=== PATIENT | female | born 1955 | race African-American/Black ===

== ENCOUNTER 2019-12-16 19:28 | Inpatient (IN) | payer BC, OTHER ==
[2019-12-16 19:44] VITALS: BMI 34.7
--- NOTE | 2019-12-16 19:44 | PDOC ---
Rapid Medical Evaluation Chief Complaint: Edema Time Seen by Provider: 12/16/19 19:38 Medical Evaluation: Allergies Allergy/AdvReac Type Severity Reaction Status Date / Time No Known Drug Allergies Allergy Verified 10/09/14 08:56 12/16/19 19:39 64 year old with erythema and swelling to b/l lower extremity right worse than leg. [patient was seen by pcp and was started on a diuretic and medrol dose pack. patient reports increased pain and swelling. denies chest pain, shortness of breath, fever/ chills PE; patient alert ox3. weeping wound to right calf. + b/l pedal edema PMHX: afib on xarelto A: pedal edema P: labs US 12/16/19 19:43 Discharge Disposition - Diagnosis Edema Qualifiers: Edema type: unspecified Qualified Code(s): R60.9 - Edema, unspecified - Referrals - Patient Instructions - Post Discharge Activity
--- NOTE | 2019-12-16 20:24 | PDOC ---
History of Present Illness - General Chief Complaint: Edema Stated Complaint: BILATERALLEG PAIN/SWELLING/ Time Seen by Provider: 12/16/19 19:38 History Source: Patient Exam Limitations: No Limitations - History of Present Illness Initial Comments: 12/16/19 20:23 HPI: This is a 64 y/o female with a PMH of HTN and afib on xarelto presenting to the ED due to 5 days of bilateral lower extremity edema, redness, itching and leaking fluid. Additionally she states she has a rash on her upper arms, and has bilateral hand swelling. She denies any previous leg edema, but states her feet are normally swollen. She denies any accompanying chest pain, headache, d izziness, blurry vision, SOB, N/V, or sweating. On she went to her commercial horticulture instructor who sent her to her PCP who prescribed Lasix. She went to urgent care who prescribed prednisone and benadryl. The swelling and itching wasn't getting better and so she came in. PCP:Prateek Baird ROS: GENERAL/CONSTITUTIONAL: No fever/chills. No weakness. HEAD, EYES, EARS, NOSE AND THROAT: No change in vision. No blurry vision. CARDIOVASCULAR: No chest pain or shortness of breath. RESPIRATORY: No cough, wheezing, or hemoptysis. GASTROINTESTINAL: No nausea, vomiting, diarrhea or constipation. GENITOURINARY: No dysuria, frequency, or change in urination. MUSCULOSKELETAL: No joint or muscle swelling or pain. No neck or back pain. SKIN: Yes rash on upper and lower bilateral extremities. NEUROLOGIC: No headache, vertigo, or change in strength/sensation. HEMATOLOGIC/LYMPHATIC: No anemia, easy bleeding, or history of blood clots. ALLERGIC/IMMUNOLOGIC: No hives or skin allergy. PMH: Afib on xarelto, HTN PSx: Appendix, Hysterectomy Social Hx: Denied etoh and tobacco Meds: Prednisone, xarelto, metoprolol, spironolactone, valsartan, HCTZ Allergies: Denied PE: GENERAL: Awake, alert, and fully oriented, in no acute distress. Patient laying in hospital bed, conversing normally. HEAD: No signs of trauma EYES: PERRLA, EOMI, sclera anicteric, conjunctiva clear NECK: Normal ROM, supple, no lymphadenopathy, JVD, or masses LUNGS: Breath sounds equal, clear to auscultation bilaterally. No wheezes, and no crackles HEART: Irregular rhythm, normal rate, normal S1 and S2, no murmurs, rubs or gallops ABDOMEN: Soft, nontender, normoactive bowel sounds. No guarding, no rebound. No masses EXTREMITIES: Normal range of motion, bilateral lower extremity pitting edema R>L. Skin thickening on bilateral calves. Both calves are erythemetous and warm to the touch. Bilateral excoriations. NEUROLOGICAL: Cranial nerves II through XII grossly intact. Normal speech, normal gait MDM: 12/16/19 21:20 This is a 64 y/o female with a PMH of HTN and afib on xarelto presenting to the ED due to 5 days of bilateral lower extremity edema, redness, itching and leaking fluid. ddx: r/o CHF vs stasis dermatitis vs DVT vs hypertensive crisis vs kidney failure vs liver ds - EKG - CXR - CBC - CMP - Troponin - BNP 12/16/19 21:30 CXR without pulmonary edema, pneumothorax No evidence of DVT in either lower extremity 12/16/19 21:33 CBC WBC 12.1 K/mm3 (4.0-10.0) H 12/16/19 22:00 RBC 4.82 M/mm3 (3.60-5.2) 12/16/19 22:00 Hgb 14.4 GM/dL (10.7-15.3) 12/16/19 22:00 Hct 44.3 % (32.4-45.2) D 12/16/19 22:00 MCV 92.0 fl (80-96) 12/16/19 22:00 MCH 29.9 pg (25.7-33.7) D 12/16/19 22:00 MCHC 32.5 g/dl (32.0-36.0) 12/16/19 22:00 RDW 14.4 % (11.6-15.6) D 12/16/19 22:00 Plt Count 280 K/MM3 (134-434) 12/16/19 22:00 MPV 7.7 fl (7.5-11.1) 12/16/19 22:00 Absolute Neuts (auto) 8.7 K/mm3 (1.5-8.0) H 12/16/19 22:00 Neutrophils % 71.5 % (42.8-82.8) 12/16/19 22:00 Lymphocytes % 16.1 % (8-40) 12/16/19 22:00 Monocytes % 6.3 % (3.8-10.2) 12/16/19 22:00 Eosinophils % 5.5 % (0-4.5) H 12/16/19 22:00 Basophils % 0.6 % (0-2.0) 12/16/19 22:00 Nucleated RBC % 0 % (0-0) 12/16/19 22:00 Leukocytosis likely due to steroids, no anemia CMP Sodium 140 mmol/L (136-145) 12/16/19 22:00 Potassium 4.0 mmol/L (3.5-5.1) 12/16/19 22:00 Chloride 104 mmol/L (98-107) 12/16/19 22:00 Carbon Dioxide 31 mmol/L (21-32) 12/16/19 22:00 Anion Gap 6 MMOL/L (8-16) L 12/16/19 22:00 BUN 15.0 mg/dL (7-18) 12/16/19 22:00 Creatinine 1.0 mg/dL (0.55-1.3) 12/16/19 22:00 Est GFR (CKD-EPI)AfAm 68.95 12/16/19 22:00 Est GFR (CKD-EPI)NonAf 59.49 12/16/19 22:00 Random Glucose 97 mg/dL (74-106) 12/16/19 22:00 Calcium 8.9 mg/dL (8.5-10.1) 12/16/19 22:00 Magnesium 2.0 mg/dL (1.8-2.4) 12/16/19 22:00 Total Bilirubin 0.6 mg/dL (0.2-1) 12/16/19 22:00 AST 22 U/L (15-37) 12/16/19 22:00 ALT 31 U/L (13-61) 12/16/19 22:00 Alkaline Phosphatase 119 U/L (45-117) H 12/16/19 22:00 Troponin I < 0.02 ng/ml (0.00-0.05) 08/03/20 22:00 B-Natriuretic Peptide 512.3 pg/ml (5-125) H 12/16/19 22:00 Total Protein 7.3 g/dl (6.4-8.2) 12/16/19 22:00 Albumin 3.8 g/dl (3.4-5.0) 12/16/19 22:00 TSH 0.56 uIU/ml (0.358-3.74) 12/16/19 22:00 Troponin negative, BNP elevated at 512, 12/16/19 23:37 Urine Test Results Urine Color Yellow 12/16/19 23:16 Urine Appearance Clear 12/16/19 23:16 Urine pH 7.5 (5.0-8.0) 12/16/19 23:16 Ur Specific [place] 1.009 (1.010-1.035) L 12/16/19 23:16 Urine Protein Negative (NEGATIVE) 12/16/19 23:16 Urine Glucose (UA) Negative (NEGATIVE) 12/16/19 23:16 Urine Ketones Negative (NEGATIVE) 12/16/19 23:16 Urine Blood Negative (NEGATIVE) 12/16/19 23:16 Urine Nitrite Negative (NEGATIVE) 12/16/19 23:16 Urine Bilirubin Negative (NEGATIVE) 12/16/19 23:16 Ur Leukocyte Esterase Negative (NEGATIVE) 12/16/19 23:16 Urine negative - Patient will be admitted for workup of possible new onset R. heart failure after failing outpatient diuretics. 12/16/19 23:51 - Microblogged symphony 12/17/19 00:35 - PAtient admitted Past History - Medical History Allergies/Adverse Reactions: Allergies Allergy/AdvReac Type Severity Reaction Status Date / Time No Known Drug Allergies Allergy Verified 10/09/14 08:56 Home Medications: Ambulatory Orders Amlodipine Besylate [Norvasc -] 10 mg PO DAILY 10/19/14 Metoprolol Tartrate [Lopressor -] 25 mg PO BID 10/19/14 Furosemide [Lasix] 20 mg PO DAILY 12/16/19 Rivaroxaban [Xarelto] 20 mg PO DAILY 12/16/19 Spironolactone 25 mg PO BID 12/16/19 Valsartan/Hydrochlorothiazide [Valsartan-Hctz 160-25 mg Tab] 1 each PO DAILY 12/16/19 Anemia: No Asthma: No Cancer: No Cardiac Disorders: Yes (AFIB) CVA: No COPD: No CHF: No Dementia: No Diabetes: No GI Disorders: No Disorders: No HTN: Yes Hypercholesterolemia: No Liver Disease: No Seizures: No Thyroid Disease: No - Surgical History Abdominal Surgery: Yes (GASTRIC BYPASS-1999) Appendectomy: Yes (MANY YEARS AGO) Cardiac Surgery: No Cholecystectomy: No Lung Surgery: No Neurologic Surgery: No Orthopedic Surgery: No - Psycho-Social/Smoking History Smoking History: Never smoked Have you smoked in the past 12 months: No - Substance Abuse Hx (Audit-C & DAST Scrn) How often the patient has a drink containing alcohol: Never Score: In Men: 4 or > Positive; In Women: 3 or > Positive: 0 Screen Result (Pos requires Nsg. Audit-10AR): Negative *Physical Exam - Vital Signs Last Vital Signs Temp Pulse Resp BP Pulse Ox 98.4 F 93 H 20 160/102 H 100 12/16/19 19:39 12/16/19 19:39 12/16/19 19:39 12/16/19 19:39 12/16/19 19:39 Heart Score/ECG Review - ECG Intrepretation Comment:: 12/16/19 22:36 Atrial fibrillation, anteroseptal infarct, age undetermined. Vent rate 73bpm, QRS duration 78ms, QT/QTc 364/401ms. No previous EKG for comparison. 12/16/19 23:37 ED Treatment Course - LABORATORY CBC & Chemistry Diagram: 12/16/19 22:00 12/16/19 22:00 Discharge - Discharge Information Problems reviewed: Yes Clinical Impression/Diagnosis: Edema Qualifiers: Edema type: unspecified Qualified Code(s): R60.9 - Edema, unspecified Congestive heart failure Qualifiers: Heart failure type: unspecified Heart failure chronicity: unspecified Qualified Code(s): I50.9 - Heart failure, unspecified Cellulitis Qualifiers: Site of cellulitis: extremity Site of cellulitis of extremity: lower extremity Laterality: unspecified laterality Qualified Code(s): L03.119 - Cellulitis of unspecified part of limb - Admission Yes - Follow up/Referral - Patient Discharge Instructions - Post Discharge Activity
--- NOTE | 2019-12-16 20:26 | PDOC ---
Attending Attestation - Resident Resident Name: Wendy Lewis - ED Attending Attestation I have performed the following: I have examined & evaluated the patient, The case was reviewed & discussed with the resident, I agree w/resident's findings & plan - HPI HPI: 12/16/19 22:08 see resident hpi - Physicial Exam PE: 12/16/19 22:08 see resident exam - Medical Decision Making 12/16/19 23:27 64-year-old female with worsening extremity edema despite increasing outpatient diuretics Patient is currently anticoagulated for atrial fibrillation Lower extremity duplex shows no DVT In light of worsening condition will admit patient to medical service for further management We will discuss initiation of antibiotics in light of elevated white blood cell count and increased discomfort Discharge - Discharge Information Problems reviewed: Yes Clinical Impression/Diagnosis: Congestive heart failure, Cellulitis Edema Qualifiers: Edema type: unspecified Qualified Code(s): R60.9 - Edema, unspecified - Follow up/Referral Referrals: Helga Chandra MD [Primary Care Provider] - - Patient Discharge Instructions - Post Discharge Activity
[2019-12-16 22:37] LABS: BASO % 0.6 % (0-2.0); EOS % 5.5 % (0-4.5); HEMATOCRIT 44.3 % (32.4-45.2); HEMOGLOBIN 14.4 GM/dL (10.7-15.3); LYMPH % 16.1 % (8-40); MCH 29.9 pg (25.7-33.7); MCHC 32.5 g/dl (32.0-36.0); MEAN PLT VOLUME 7.7 fl (7.5-11.1); MONO % 6.3 % (3.8-10.2); NEUT % 71.5 % (42.8-82.8); PLATELET COUNT 280 K/MM3 (134-434); RBC 4.82 M/mm3 (3.60-5.2); RDW 14.4 % (11.6-15.6); WHITE BLOOD COUNT 12.1 K/mm3 (4.0-10.0)
[2019-12-16 22:50] LABS: INR 1.39 (0.83-1.09); PROTHROMBIN TIME (PATIENT) 16.4 SEC (9.7-13.0)
[2019-12-16 23:13] LABS: ALBUMIN 3.8 g/dl (3.4-5.0); ALK PHOS 119 U/L (45-117); ANION GAP 6 MMOL/L (8-16); BILIRUBIN,TOTAL 0.6 mg/dL (0.2-1); CALCIUM 8.9 mg/dL (8.5-10.1); CHLORIDE 104 mmol/L (98-107); CO2 31 mmol/L (21-32); GLUCOSE,RANDOM 97 mg/dL (74-106); N-TERMINAL BNP 512.3 pg/ml (5-125); SGOT/AST 22 U/L (15-37); SGPT/ALT 31 U/L (13-61); SODIUM 140 mmol/L (136-145); TOT PROT 7.3 g/dl (6.4-8.2)
[2019-12-16 23:25] LABS: PH,URINE 7.5 (5.0-8.0); URINE APPEARANCE CLEAR; URINE BILIRUBIN NEGATIVE (NEGATIVE); URINE COLOR YELLOW; URINE GLUCOSE (UA) NEGATIVE (NEGATIVE); URINE KETONE NEGATIVE (NEGATIVE); URINE LEUK ESTERASE NEGATIVE (NEGATIVE); URINE NITRITE NEGATIVE (NEGATIVE); URINE PROTEIN NEGATIVE (NEGATIVE)
[2019-12-16] MEDS ORDERED: FUROSEMIDE 40 MG/4 ML INJECTABLE VIAL IVPUSH ONE (23:57)
[2019-12-17] MEDS ORDERED: FUROSEMIDE 40 MG/4 ML INJECTABLE VIAL ONE (00:03)
--- NOTE | 2019-12-17 00:52 | PN ---
Teaching Attending Note Name of Resident: Tunde Cortez ATTENDING PHYSICIAN STATEMENT I saw and evaluated the patient. I reviewed the resident's note and discussed the case with the resident. I agree with the resident's findings and plan as documented. SUBJECTIVE: Patient is a 64 year old woman with a PMH of HTN, Thyroid nodule, Prescribed CPAP (not using it because she works nights), Gastric banding and Afib (on Xarelto) presenting to the ER due to 5 days of bilateral lower extremity edema, redness, itching and leaking fluid. Additionally she states she has a rash on her upper arms, and has bilateral hand swelling. She denies any previous leg edema, but states her feet are normally swollen. Sleeps on three pillows. She denies any accompanying chest pain, headache, dizziness, blurry vision, SOB, nausea, vomiting or sweating. On she went to her customer service sales consultant who sent her to her PCP who prescribed Lasix. She went to Urgent care who prescribed Prednisone and Benadryl. The swelling and itching wasn't getting better and so she came in. Patient denies fever, chills, diarrhea, constipation, dysuria, frequency, urgency, melena, hematochezia or hematuria. Denies alcohol, tobacco or illicit drug use. No sick contacts or recent travels. Has family history of hypertension. OBJECTIVE: Alert Vital Signs Period Temp Pulse Resp BP Sys/[place] Pulse Ox Last 24 Hr 98.2 F-98.4 F 74-93 18-20 160-166/102-105 100-100 HEENT: No Jaundice, eye redness or discharge, PERRLA, EOMI. Normocephalic, atraumatic. External ears are normal and hearing is grossly intact. No nasal discharge. Neck: Supple, nontender. No palpable adenopathy or thyromegaly. No JVD Chest: Good effort. Clear to auscultation and percussion. Heart: Regular. No S3, rub or murmur Abdomen: Not distended, soft, nontender and no HSM. No rebound or guarding. Normal bowel sounds. Ext: Peripheral pulses intact. Arm and leg edema; right calf excoriations. Skin: Warm and dry. No petechiae, rash or ecchymosis. Neuro: Alert. Oriented x3. CN 2-12 grossly intact. Sensation grossly intact in all four extremities and DTR are symmetric. Psych: Appropriate mood and affect. Good insight. Home Medications Medication Instructions Recorded Amlodipine Besylate [Norvasc -] 10 mg PO DAILY 10/19/14 Metoprolol Tartrate [Lopressor -] 25 mg PO BID 10/19/14 Furosemide [Lasix] 20 mg PO DAILY 12/16/19 Rivaroxaban [Xarelto] 20 mg PO DAILY 12/16/19 Spironolactone 25 mg PO BID 12/16/19 Valsartan/Hydrochlorothiazide 1 each PO DAILY 12/16/19 [Valsartan-Hctz 160-25 mg Tab] Abnormal Lab Results 12/16/19 12/16/19 12/16/19 22:00 22:00 22:00 WBC 12.1 H Absolute Neuts (auto) 8.7 H Eosinophils % 5.5 H PT with INR 16.40 H INR 1.39 H Anion Gap 6 L Alkaline Phosphatase 119 H B-Natriuretic Peptide 512.3 H Ur Specific [place] 12/16/19 23:16 WBC Absolute Neuts (auto) Eosinophils % PT with INR INR Anion Gap Alkaline Phosphatase B-Natriuretic Peptide Ur Specific [place] 1.009 L Current Medications Generic Name Dose Route Start Last Admin Trade Name Freq PRN Reason Stop Dose Admin Diphenhydramine HCl 25 mg 12/17/19 02:22 Benadryl - PO Q6H PRN FOR ITCHING Hydrochlorothiazide 12.5 mg 12/17/19 10:00 Hctz - PO DAILY [facility] Metoprolol Tartrate 50 mg 12/17/19 10:00 Lopressor - PO BID [facility] Rivaroxaban 20 mg 12/17/19 10:00 Xarelto PO DAILY [facility] ASSESSMENT AND PLAN: 1. New onset CHF/[place]/?Angioedema - Etiology is unclear. Likely has underlying sleep apnea/obesity hypoventilation syndrome hence the CPAP prescription that she is not using. May have developed right heart failure. Amlodipine may be contributing to leg edema. Will stop Valsartan in case she has angioedema. No acute abnormality on CXR. Vascular study of legs didnot show DVT. EKG shows Afib at 73/minute and QTc [address]-T wave changes. Initial troponin is negative. Treat with Benadryl and apply steroid/antihistamine cream to right calf. Will admit to telemetry, elevate legs when supine, trend troponin, hold Amlodipine, give IV lasix trial, get ECHO, TSH, hepatitis serology, REMY, complements C3/C4, restrict dietary salt intake, monitor renal function, monitor and replete electrolytes, get daily weight and consult Cardiology. Use CPAP at night and consult Pulmonary/Rheumatology. Viral testing for COVID-19 ordered and patient placed on airborne, droplet and contact isolation. Will continue comprehensive care for all of patients comorbid conditions including Xarelto for Afib. 2. Hypertension Will hold Amlodipine; increased Metoprolol to 50 mg bid and ensure staggered dosing of her antihypertensive drugs. Subsequently, will revise regimen to ensure [id number] excellent BP control. Patient counseled on the injurious effects of uncontrolled hypertension. Nonpharmacologic measures to control hypertension like weight loss, salt restriction and exercise stressed. Importance of adherence to treatment regimen and attainment of normotension emphasized. 3. DVT prophylaxis - On Xarelto for Afib. 4. Advance directives - Full code
[2019-12-17] MEDS ORDERED: diphenhydrAMINE HCL 25 MG CAPSULE (FP) PO PRN (02:22)
--- NOTE | 2019-12-17 03:09 | HP ---
CHIEF COMPLAINT: Leg swelling and itching PCP: HISTORY OF PRESENT ILLNESS: 64 y.o. F PMHx of HTN, A-fib on xarelto presenting with bilateral lower extremity edema and itching. Patient stated She has had b/l LE swelling since Monday. On Monday she noticed it was also leaking fluid. Aditionally she noticed a rash on her arms and swelling progressing to her arms. Pt. states her R calf has been very itchy and causing significant discomfort. Pt. denies headache, chest pain, SOB, N/V/D. States she has not had any LE swelling prior to this event. Pt. stated she saw her associate drafter Dr. Baird on who started her on lasix. Monday she went to urgent care for the itching and was prescribed Benadryl and prednisone. 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 ER course was notable for: (1) EKG (2) Benadryl 25mg (3) IV insertion Recent Travel: None PAST MEDICAL HISTORY: HTN, A-fib PAST SURGICAL HISTORY: Bariatric surgery & gastric sleeve (2015) Social History: Smoking: None Alcohol: None Drugs: None Allergies No Known Drug Allergies Allergy (Verified 10/09/14 08:56) HOME MEDICATIONS: Home Medications Medication Instructions Recorded Amlodipine Besylate [Norvasc -] 10 mg PO DAILY 10/19/14 Metoprolol Tartrate [Lopressor -] 25 mg PO BID 10/19/14 Furosemide [Lasix] 20 mg PO DAILY 12/16/19 Rivaroxaban [Xarelto] 20 mg PO DAILY 12/16/19 Spironolactone 25 mg PO BID 12/16/19 Valsartan/Hydrochlorothiazide 1 each PO DAILY 12/16/19 [Valsartan-Hctz 160-25 mg Tab] REVIEW OF SYSTEMS CONSTITUTIONAL: Absent: fever, chills, diaphoresis, generalized weakness, malaise, loss of appetite, weight change HEENT: Absent: rhinorrhea, nasal congestion, throat pain, throat swelling, difficulty swallowing, mouth swelling, ear pain, eye pain, visual changes CARDIOVASCULAR: Absent: chest pain, syncope, palpitations, irregular heart rate, lightheadedness, peripheral edema RESPIRATORY: Absent: cough, shortness of breath, dyspnea with exertion, orthopnea, wheezing, stridor, hemoptysis GASTROINTESTINAL: Absent: abdominal pain, abdominal distension, nausea, vomiting, diarrhea, constipation, melena, hematochezia GENITOURINARY: Absent: dysuria, frequency, urgency, hesitancy, hematuria, flank pain, genital pain MUSCULOSKELETAL: Absent: myalgia, arthralgia, joint swelling, back pain, neck pain SKIN: itching, rash Absent: pallor HEMATOLOGIC/IMMUNOLOGIC: Absent: easy bleeding, easy bruising, lymphadenopathy, frequent infections ENDOCRINE: Absent: unexplained weight gain, unexplained weight loss, heat intolerance, cold intolerance NEUROLOGIC: Absent: headache, focal weakness or paresthesias, dizziness, unsteady gait, seizure, mental status changes, bladder or bowel incontinence PSYCHIATRIC: Absent: anxiety, depression, suicidal or homicidal ideation, hallucinations. PHYSICAL EXAMINATION Vital Signs - 24 hr 12/16/19 12/16/19 12/17/19 19:39 21:00 00:10 Temperature 98.4 F 98.2 F Pulse Rate 93 H 92 H Pulse Rate [ 74 Radial] Respiratory 20 18 Rate Blood Pressure 160/102 H Blood Pressure 166/105 H [Left Arm] O2 Sat by Pulse 100 100 Oximetry (%) GENERAL: Awake, alert, and fully oriented, in no acute distress. HEAD: Normal with no signs of trauma. EYES: Pupils equal, round and reactive to light, extraocular movements intact, sclera anicteric, conjunctiva clear. EARS, NOSE, THROAT: Ears normal, nares patent, oropharynx clear without exudates. Moist mucous membranes. NECK: Normal range of motion, supple without lymphadenopathy, JVD, or masses. LUNGS: Breath sounds equal, clear to auscultation bilaterally. No wheezes, and no crackles. No accessory muscle use. HEART: Regular rate and rhythm, normal S1 and S2 without murmur, rub or gallop. ABDOMEN: Soft, nontender, not distended, normoactive bowel sounds, no guarding, no rebound, no masses. No hepatomegaly or splenomegaly. MUSCULOSKELETAL: Normal range of motion at all joints. No bony deformities or tenderness. No CVA tenderness. UPPER EXTREMITIES: 2+ pulses, warm, well-perfused. No cyanosis. No clubbing. 3+ peripheral edema. LOWER EXTREMITIES: DP pulses not palpable, warm, well-perfused. 3+ peripheral edema. NEUROLOGICAL: Cranial nerves II-XII intact. Normal speech. PSYCHIATRIC: Cooperative. Good eye contact. Appropriate mood and affect. SKIN: Warm, dry, normal turgor, excoriations on the R calf. Laboratory Results - last 24 hr 12/16/19 12/16/19 12/16/19 22:00 22:00 22:00 WBC 12.1 H RBC 4.82 Hgb 14.4 Hct 44.3 D MCV 92.0 MCH 29.9 D MCHC 32.5 RDW 14.4 D Plt Count 280 MPV 7.7 Absolute Neuts (auto) 8.7 H Neutrophils % 71.5 Lymphocytes % 16.1 Monocytes % 6.3 Eosinophils % 5.5 H Basophils % 0.6 Nucleated RBC % 0 PT with INR 16.40 H INR 1.39 H Sodium 140 Potassium 4.0 Chloride 104 Carbon Dioxide 31 Anion Gap 6 L BUN 15.0 Creatinine 1.0 Est GFR (CKD-EPI)AfAm 68.95 Est GFR (CKD-EPI)NonAf 59.49 Random Glucose 97 Calcium 8.9 Magnesium 2.0 Total Bilirubin 0.6 AST 22 ALT 31 Alkaline Phosphatase 119 H Troponin I < 0.02 B-Natriuretic Peptide 512.3 H Total Protein 7.3 Albumin 3.8 TSH Urine Color Urine Appearance Urine pH Ur Specific [place] Urine Protein Urine Glucose (UA) Urine Ketones Urine Blood Urine Nitrite Urine Bilirubin Urine Urobilinogen Ur Leukocyte Esterase 12/16/19 12/16/19 22:00 23:16 WBC RBC Hgb Hct MCV MCH MCHC RDW Plt Count MPV Absolute Neuts (auto) Neutrophils % Lymphocytes % Monocytes % Eosinophils % Basophils % Nucleated RBC % PT with INR INR Sodium Potassium Chloride Carbon Dioxide Anion Gap BUN Creatinine Est GFR (CKD-EPI)AfAm Est GFR (CKD-EPI)NonAf Random Glucose Calcium Magnesium Total Bilirubin AST ALT Alkaline Phosphatase Troponin I B-Natriuretic Peptide Total Protein Albumin TSH 0.56 Urine Color Yellow Urine Appearance Clear Urine pH 7.5 Ur Specific [place] 1.009 L Urine Protein Negative Urine Glucose (UA) Negative Urine Ketones Negative Urine Blood Negative Urine Nitrite Negative Urine Bilirubin Negative Urine Urobilinogen 1.0 Ur Leukocyte Esterase Negative ASSESSMENT/PLAN: 64 y.o. F PMHx of HTN, A-fib on xarelto presenting with bilateral lower extremity edema and itching. # Lower Extremity edema - Likely secondary to chronic venous stasis vs. lymphedema vs CCB - BNP 512.3 - Hold CCB & MAMADOU-I - Consult Pulm Dr. García - Echo ordered - Consult CARDIO Dr. Baird - Compression stockings - Leg elevation # Pruritis - vasculitis vs. contact dermatitis - REMY ordered - Consult rheum Dr. Dangelo - Would also consider C3/C4, Hep panel # HTN - BP 151/103 - Lopressor 50 QD - HCTZ 12.5 QD # Leukocytosis - Likely reactive secondary to prednisone - WBC 12.1 # A-fib - Continue Xarelto 20mg PO daily # Obesity - Previous bariatric hx - [employer] on weight loss through dietary measures # Covid r/o - Covid PCR Ordered - PCR ordered due to geographic location of pandemic - Placed in isolation precautions # FEN - Low salt diet # DVT Prophylaxis - Xarelto 20mg PO daily # Dispo - Patient admitted to telemetry; Will continue to monitor vitals and labs Visit type - Emergency Visit Emergency Visit: Yes ED Registration Date: 12/17/19 Care time: The patient presented to the Emergency Department on the above date and was hospitalized for further evaluation of their emergent condition. - New Patient This patient is new to me today: No - Critical Care Critical Care patient: No ATTENDING PHYSICIAN STATEMENT I saw and evaluated the patient. I reviewed the resident's note and discussed the case with the resident. I agree with the resident's findings and plan as documented. SUBJECTIVE: OBJECTIVE: ASSESSMENT AND PLAN:
[2019-12-17 06:24] VITALS: TEMP 98.1
[2019-12-17 06:55] LABS: BASO % 0.7 % (0-2.0); EOS % 8.9 % (0-4.5); HEMATOCRIT 43.8 % (32.4-45.2); HEMOGLOBIN 14.3 GM/dL (10.7-15.3); LYMPH % 21.5 % (8-40); MCH 29.7 pg (25.7-33.7); MCHC 32.7 g/dl (32.0-36.0); MEAN CELL VOLUME 90.6 fl (80-96); MEAN PLT VOLUME 7.9 fl (7.5-11.1); MONO % 7.2 % (3.8-10.2); NEUT % 61.7 % (42.8-82.8); PLATELET COUNT 273 K/MM3 (134-434); RBC 4.83 M/mm3 (3.60-5.2); RDW 14.4 % (11.6-15.6); WHITE BLOOD COUNT 10.7 K/mm3 (4.0-10.0)
[2019-12-17 07:26] LABS: ANION GAP 5 MMOL/L (8-16); BLOOD UREA NITROGEN 13.7 mg/dL (7-18); CALCIUM 9.2 mg/dL (8.5-10.1); CHLORIDE 100 mmol/L (98-107); CO2 36 mmol/L (21-32); CREATININE 0.9 mg/dL (0.55-1.3); GLUCOSE,RANDOM 81 mg/dL (74-106); MAGNESIUM 1.9 mg/dL (1.8-2.4); POTASSIUM 3.6 mmol/L (3.5-5.1); SODIUM 142 mmol/L (136-145)
[2019-12-17] MEDS ORDERED: METOPROLOL TARTRATE 50 MG TABLET (FP) ONE (09:00)
[2019-12-17] MEDS ORDERED: HYDROCHLOROTHIAZIDE 12.5 MG CAPSULE (FP) PO SCH (10:00)
[2019-12-17] MEDS ORDERED: METOPROLOL TARTRATE 50 MG TABLET (FP) PO SCH (10:00)
--- NOTE | 2019-12-17 10:43 | EKG ---
Test Reason : Blood Pressure : / mmHG Vent. Rate : 073 BPM Atrial Rate : 090 BPM P-R Int : 000 ms QRS Dur : 078 ms QT Int : 364 ms P-R-T Axes : 000 -04 069 degrees QTc Int : 401 ms ATRIAL FIBRILLATION ANTEROSEPTAL INFARCT , AGE UNDETERMINED ABNORMAL ECG WHEN COMPARED WITH ECG OF 24-MAY-2007 11:11, ATRIAL FIBRILLATION HAS REPLACED SINUS RHYTHM VENT. RATE HAS INCREASED BY 25 BPM ANTEROSEPTAL INFARCT IS NOW PRESENT Confirmed by Toni Casey ([id number]) on 12/17/2019 10:43:36 AM Referred By: Confirmed By:Toni Casey
--- NOTE | 2019-12-17 11:21 | ECHO ---
Name: GRACE BREWSTER Exam:Adult Echocardiogram Study Date: 12/17/2019 10:16 AM Age: 64 yrs Reason For Study: CHF Height: 66 in Weight: 215 lb BSA: 2.1 m2 MMode/2D Measurements & Calculations IVSd: 1.4 cm Ao root diam: 3.0 cm LVIDd: 2.9 cm LA dimension: 3.5 cm LVIDs: 1.9 cm ACS: 2.1 cm LVPWd: 1.1 cm LVPWs: 1.1 cm EDV(Teich): 32.0 ml ESV(Teich): 11.2 ml LVOT diam: 2.1 cm LAV(MOD-sp2): 36.0 ml LAV(MOD-sp4): 85.1 ml LAV(MOD-bp): 62.8 ml LAV(MOD-bp) Indexed: 30.5 ml/m2 LAV (MOD-bp): 74.0 ml TAPSE: 2.0 cm Doppler Measurements & Calculations MV V2 max: 99.1 cm/sec MV E max alicia: 81.2 cm/sec MV max P.9 mmHg MV dec time: 0.17 sec MV V2 mean: 56.3 cm/sec MV mean P.5 mmHg MV V2 VTI: 26.7 cm Ao V2 max: 97.7 cm/sec LV V1 max P.7 mmHg Ao max P.8 mmHg LV V1 max: 82.4 cm/sec VALENTIN(V,D): 2.8 cm2 MR max alicia: 207.7 cm/sec TR max alicia: 196.1 cm/sec MR max P.3 mmHg TR max P.4 mmHg PA V2 max: 69.2 cm/sec PA max P.9 mmHg Tech Comments Technically difficult study due to body habitus. Procedure A complete two-dimensional transthoracic echocardiogram was performed (2D, M-mode, Doppler and color flow Doppler). The patient was in an abnormal rhythm during the exam. Left Ventricle The left ventricular size, thickness and function are normal. Ejection Fraction = 55. Right Ventricle The right ventricle is normal in size and function. Atria Normal left and right atrial size and function. Mitral Valve The mitral valve is normal in structure and function. There is no mitral valve stenosis. There is mil d mitral regurgitation. Tricuspid Valve The tricuspid valve is normal in structure and function. There is no tricuspid stenosis. There is mil d tricuspid regurgitation. Aortic Valve There is mild aortic sclerosis.;. No hemodynamically significant valvular aortic stenosis. No aortic regurgitation is present. Pulmonic Valve The pulmonic valve is normal in structure and function. Great Vessels The aortic root is normal size. Pericardium/Pleura There is no pericardial effusion. Interpretation Summary The left ventricular size, thickness and function are normal The right ventricle is normal in size and function. The mitral valve is normal in structure and function. There is mild aortic sclerosis.; No hemodynamically significant valvular aortic stenosis. Toni Casey 12/17/2019 11:21 AM
--- NOTE | 2019-12-17 11:24 | CON.PULM ---
Consult Consult Specialty:: PULM/CCM Referred by:: Hospitalist Reason for Consultation:: OSAS - History of Present Illness Chief Complaint: Rash History of Present Illness: 64 F, HTN, A-fib on xarelto, gastric surgery, and OSAS diagnosed at [facility] (does not know the details) but has not been on CPAP for over 1 year. 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 Poor sleep quality and limited hours during the daytime. Admitted via the ER due to bilateral lower extremity edema and itching for the past several days. Reports that she was given Lasix by her Case Assistant. Monday she went to an urgent care for the itching and was prescribed Benadryl and prednisone. She does have loud snoring and history of witnessed apneas. CXR : low lung volumes / increased interstitial markings /no focal infiltrates - History Source History Provided By: Patient Limitations to Obtaining History: No Limitations - Past Medical History Pulmonary: Yes: Bronchitis, Sleep Apnea. No: Asthma, Cancer, COPD, O2 Dependent, Pneumonia, Previously Intubated, Pulmonary Embolus, Pulmonary Fibrosis - Alcohol/Substance Use Hx Alcohol Use: No - Smoking History Smoking history: Never smoked Have you smoked in the past 12 months: No Home Medications - Allergies Allergies/Adverse Reactions: Allergies Allergy/AdvReac Type Severity Reaction Status Date / Time No Known Drug Allergies Allergy Verified 10/09/14 08:56 - Home Medications Home Medications: Ambulatory Orders Amlodipine Besylate [Norvasc -] 10 mg PO DAILY 10/19/14 Metoprolol Tartrate [Lopressor -] 25 mg PO BID 10/19/14 Furosemide [Lasix] 20 mg PO DAILY 12/16/19 Rivaroxaban [Xarelto] 20 mg PO DAILY 12/16/19 Spironolactone 25 mg PO BID 12/16/19 Valsartan/Hydrochlorothiazide [Valsartan-Hctz 160-25 mg Tab] 1 each PO DAILY 12/16/19 Review of Systems - Review of Systems Constitutional: reports: Malaise. denies: Chills, Fever, Night Sweats, Unintentional Wgt. Loss Eyes: reports: No Symptoms HENT: reports: No Symptoms Neck: reports: No Symptoms Cardiovascular: reports: Edema. denies: Chest Pain, Palpitations, Shortness of Breath Respiratory: reports: Orthopnea, Snoring. denies: Cough, Exercise Intolerance, Hemoptysis, PND, SOB, SOB on Exertion, Wheezing Gastrointestinal: reports: No Symptoms Genitourinary: reports: No Symptoms Breasts: reports: No Symptoms Reported Musculoskeletal: reports: No Symptoms Integumentary: reports: Blister, Change in Color, Erythema, Pruritis, Rash Neurological: reports: No Symptoms Endocrine: reports: No Symptoms Hematology/Lymphatic: reports: No Symptoms Psychiatric: reports: Altered Sleep Pattern Physical Exam Vital Sings: Vital Signs Temperature 98.1 F 12/17/19 06:23 Pulse Rate 82 12/17/19 07:30 Respiratory Rate 18 12/17/19 07:30 Blood Pressure 145/109 H 12/17/19 07:30 O2 Sat by Pulse Oximetry (%) 99 12/17/19 09:40 Constitutional: Yes: No Distress, Calm Eyes: Yes: Conjunctiva Clear, EOM Intact HENT: Yes: Atraumatic, Normocephalic Neck: Yes: Supple, Trachea Midline Cardiovascular: Yes: Pulse Irregular Respiratory: Yes: Diminished. No: Accessory Muscle Use, Rales, Rhonchi, SOB, SOB on Exertion, Stridor, Tachypnea, Wheezes ...Inspection: Yes: WNL ...Clubbing: No Gastrointestinal: Yes: Normal Bowel Sounds, Soft, Abdomen, Obese Renal/: Yes: WNL Musculoskeletal: Yes: WNL Extremities: Yes: Erythema Edema: Yes Peripheral Pulses WNL: Yes Integumentary: Yes: Bruising, Erythema, Rash, Skin Tear Neurological: Yes: WNL, Alert, Oriented ...Motor Strength: WNL Psychiatric: Yes: WNL, Alert, Oriented Labs: CBC, BMP 12/17/19 05:40 12/17/19 05:40 Problem List - Problems (1) GAEL (obstructive sleep apnea) Code(s): G47.33 - OBSTRUCTIVE SLEEP APNEA (ADULT) (PEDIATRIC) (2) Shift work sleep disorder Code(s): G47.26 - CIRCADIAN RHYTHM SLEEP DISORDER, SHIFT WORK TYPE (3) Insufficient sleep syndrome Code(s): F51.12 - INSUFFICIENT SLEEP SYNDROME (4) Cellulitis Code(s): L03.90 - CELLULITIS, UNSPECIFIED Qualifiers: Site of cellulitis: extremity Site of cellulitis of extremity: lower extremity Laterality: unspecified laterality Qualified Code(s): L03.119 - Cellulitis of unspecified part of limb (5) Congestive heart failure Code(s): I50.9 - HEART FAILURE, UNSPECIFIED Qualifiers: Heart failure type: unspecified Heart failure chronicity: unspecified Qualified Code(s): I50.9 - Heart failure, unspecified (6) Edema Code(s): R60.9 - EDEMA, UNSPECIFIED Qualifiers: Edema type: unspecified Qualified Code(s): R60.9 - Edema, unspecified Assessment/Plan Patient will need sleep re-evaluation Noted Rheumatology evaluation was called for possible vasculitis (Do not suspect Pulmonary process) Sleep hygiene discussed Lasix No smoking Outpatient PFTs once stable Will follow Thank you. Dr Bowden
--- NOTE | 2019-12-17 11:24 | CON.CARD ---
Consult Consult Specialty:: Cardiology Referred by:: Medicine Reason for Consultation:: edema - History of Present Illness Chief Complaint: itching, rash, edema History of Present Illness: 64F h/o HTN, afib, GAEL, s/p gastric band with upper and lower ext edema, redness, itching and bleeding. Patient sees me for cardio. Went to urgent care last for redness, itching, edema that came o suddenly. She was given prednisone and the next day was not improving, unable to get PCP appointment and saw me on Monday for a scheduled follow up. She was started on lasix 20 mg PO daily and was evaluated by Dr. Capps, continued on steroids and benadryl. Over the weekend not getting better so came to the ER. Denies dyspnea, chest pain, palps, dizziness. Sleeps on 3 pillows chronically, has history of GAEL chronically doesn't use CPAP. Feels better this morning after IV lasix, benadryl. Has been on amlodipine several years and valsartan started a few months ago after a med recall of losartan. no new exposures she can think of. - Alcohol/Substance Use Hx Alcohol Use: No - Smoking History Smoking history: Never smoked Have you smoked in the past 12 months: No Home Medications - Allergies Allergies/Adverse Reactions: Allergies Allergy/AdvReac Type Severity Reaction Status Date / Time No Known Drug Allergies Allergy Verified 10/09/14 08:56 - Home Medications Home Medications: Ambulatory Orders Amlodipine Besylate [Norvasc -] 10 mg PO DAILY 10/19/14 Metoprolol Tartrate [Lopressor -] 25 mg PO BID 10/19/14 Furosemide [Lasix] 20 mg PO DAILY 12/16/19 Rivaroxaban [Xarelto] 20 mg PO DAILY 12/16/19 Spironolactone 25 mg PO BID 12/16/19 Valsartan/Hydrochlorothiazide [Valsartan-Hctz 160-25 mg Tab] 1 each PO DAILY 12/16/19 Family Medical History Family History: Unremarkable Review of Systems - Review of Systems Constitutional: reports: No Symptoms Eyes: reports: No Symptoms HENT: reports: No Symptoms Neck: reports: No Symptoms Cardiovascular: reports: No Symptoms Respiratory: reports: No Symptoms Gastrointestinal: reports: No Symptoms Genitourinary: reports: No Symptoms Musculoskeletal: reports: No Symptoms Integumentary: reports: No Symptoms Neurological: reports: No Symptoms Endocrine: reports: No Symptoms Hematology/Lymphatic: reports: No Symptoms Psychiatric: reports: No Symptoms Vital Signs: Vital Signs Temperature 98.1 F 12/17/19 06:23 Pulse Rate 82 12/17/19 07:30 Respiratory Rate 18 12/17/19 07:30 Blood Pressure 145/109 H 12/17/19 07:30 O2 Sat by Pulse Oximetry (%) 99 12/17/19 09:40 Constitutional: Yes: Well Nourished, No Distress, Calm Eyes: Yes: Conjunctiva Clear, EOM Intact HENT: Yes: Atraumatic, Normocephalic Neck: Yes: Supple, Trachea Midline Respiratory: Yes: Regular, CTA Bilaterally Gastrointestinal: Yes: Normal Bowel Sounds, Soft Cardiovascular: Yes: Regular Rate and Rhythm JVD: No Heart Sounds: Yes: S1, S2 Musculoskeletal: No: Back Pain Extremities: No: Cold Edema: Yes Edema: LUE: Trace, RUE: Trace, LLE: Trace, RLE: Trace Peripheral Pulses WNL: Yes Integumentary: Yes: Rash Neurological: Yes: Alert, Oriented Psychiatric: No: Agitated - Other Data Labs, Other Data: CBC, BMP 12/17/19 05:40 12/17/19 05:40 INR, PTT INR 1.39 (0.83-1.09) H 12/16/19 22:00 Troponin, BNP 12/16/19 12/17/19 22:00 05:40 Troponin I < 0.02 < 0.02 B-Natriuretic Peptide 512.3 H Troponin, BNP 12/16/19 12/17/19 22:00 05:40 Troponin I < 0.02 < 0.02 B-Natriuretic Peptide 512.3 H Assessment/Plan CXR: no congestion echo 12/2019 nl LV/RV function, mild aortic sclerosis without stenosis EKG afib, no ischemic changes edema, rash, itching - clinical picture less consistent with CHF, echo shows nl LV function - more likely allergic reaction - improving with IV lasix, benadryl, steroids - can continue lasix 40 mg PO daily on discharge - no further cardiac testing at this point afib - cont xarelto HTN - home meds amlodipine, valsartan, spironolactone held for concern for allergic reaction, edema although she has been taking 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
[2019-12-17] MEDS ORDERED: HYDROCHLOROTHIAZIDE 25 MG TABLET (FP) PO SCH (11:28)
[2019-12-17] MEDS ORDERED: HYDROCHLOROTHIAZIDE 25 MG TABLET (FP) PO ONE (11:45)
[2019-12-17] MEDS ORDERED: HYDROCHLOROTHIAZIDE 25 MG TABLET (FP) ONE ×2 (12:24→12:26)
--- NOTE | 2019-12-17 12:24 | PN ---
GAEL Screen - GAEL History Previously diagnosed with Sleep Apnea: Yes If Yes, currently using CPAP to treat your GAEL: No - SNORING Do you snore loudly (enough to be heard thru closed doors)?: Yes - TIRED Do you often feel tired, fatigued, or sleepy during daytime?: Yes - OBSERVED Has anyone observed you stop breathing during your sleep?: Yes - BLOOD PRESSURE Do you have or are being treated for high blood pressure?: Yes - BMI Answer Y if weight exceeds amount listed for your height: Yes .: HEIGHT & WEIGHT (lbs): 4'10" 167lbs; 411" 175 lbs; 5'0" 179lbs;. 5'1" 185lbs; 5'2" 191lbs; 5'3" 197lbs;. 5'4" 204lbs; 5'5" 210lbs; 5'6" 216lbs;. 5'7" 223lbs; 5'8" 230lbs; 5'9" 237lbs;. 510" 243lbs; 511" 250lbs; 6' 258lbs;. 6'1" 265lbs; 6'2" 272lbs; 6'3" 279lbs;. 6'4" 287lbs; 6'5" 295lbs - AGE Is your age over 50 yrs old?: Yes - NECK CIRCUMFERENCE Neck Circumference 40cm: No - GENDER Male: No - SCORE Total Score: 6 Score Interpretation: High Risk of GAEL .: Interpretation: Score 0-2: Low Risk GAEL. Score 3-4: Intermediate Risk GAEL. Score 5-8: High Risk GAEL Problem List - Problems (1) GAEL (obstructive sleep apnea) Code(s): G47.33 - OBSTRUCTIVE SLEEP APNEA (ADULT) (PEDIATRIC) (2) Shift work sleep disorder Code(s): G47.26 - CIRCADIAN RHYTHM SLEEP DISORDER, SHIFT WORK TYPE (3) Insufficient sleep syndrome Code(s): F51.12 - INSUFFICIENT SLEEP SYNDROME (4) Cellulitis Code(s): L03.90 - CELLULITIS, UNSPECIFIED Qualifiers: Site of cellulitis: extremity Site of cellulitis of extremity: lower extremity Laterality: unspecified laterality Qualified Code(s): L03.119 - Cellulitis of unspecified part of limb (5) Congestive heart failure Code(s): I50.9 - HEART FAILURE, UNSPECIFIED Qualifiers: Heart failure type: unspecified Heart failure chronicity: unspecified Qualified Code(s): I50.9 - Heart failure, unspecified (6) Edema Code(s): R60.9 - EDEMA, UNSPECIFIED Qualifiers: Edema type: unspecified Qualified Code(s): R60.9 - Edema, unspecified
--- NOTE | 2019-12-17 13:37 | PN ---
Teaching Attending Note Name of Resident: Cyrus Hill ATTENDING PHYSICIAN STATEMENT I saw and evaluated the patient. I reviewed the resident's note and discussed the case with the resident. I agree with the resident's findings and plan as documented. SUBJECTIVE: Seen and examined at bedside. Patient scratching in her legs and reporting itching. Echocardiogram and venous ultrasound unremarkable. Patient denies shortness of breath, cough, chest pain. Patient has no signs or symptoms to suggest cellulitis. White count differential shows elevated eosinophils suggesting allergic process. Patient will be discharged on 3 days of prednisone 40 mg and Benadryl. She will also be given hydrocortisone cream. She has been instructed to follow-up with her primary care provider who can consider the patient for outpatient dermatology referral if indicated. Patient will also be prescribed back to trace and ointment to place over the areas of her skin that have become excoriated due to the itching. Patient informed that she should avoid scratching as much as possible as this will lead to the worsening of her condition and of her symptoms. OBJECTIVE: Last Vital Signs Temp Pulse Resp BP Pulse Ox 98.1 F 70 20 136/79 98 12/17/19 06:23 12/17/19 11:15 12/17/19 11:15 12/17/19 11:15 12/17/19 11:15 PE: per resident note Labs/Imaging: reviewed ASSESSMENT AND PLAN: 64-year-old female with a history of GAEL presents with lower extremity swelling and pruritus. CHF and DVT and cellulitis highly unlikely. Symptoms are more consistent with allergic response. No signs of anaphylaxis. Patient is medically cleared for discharged with treatment plan as above.
[2019-12-17 14:30] VITALS: BP 111/75; PULSE 74
--- NOTE | 2019-12-17 15:24 | DS ---
Physical Exam: SUBJECTIVE: No overnight events. Patient seen and examined. Endorses pruritus of UE and LE. Reports UE edema improved as compared to yesterday. OBJECTIVE: Vital Signs Period Temp Pulse Resp BP Sys/[place] Pulse Ox Last 24 Hr 97.6 F-98.4 F 70-97 18-20 107-166/73-109 98-100 PHYSICAL EXAM GENERAL: The patient is awake, alert, and fully oriented, in no acute distress. HEENT: Normal with no signs of trauma. Ears normal, nares patent, oropharynx clear without exudates, moist mucous membranes. LUNGS: Breath sounds equal, clear to auscultation bilaterally, no wheezes, no crackles, no accessory muscle use. HEART: Regular rate and rhythm, S1, S2 without murmur, rub or gallop. ABDOMEN: Soft, nontender, nondistended, normoactive bowel sounds, no guarding, no rebound, EXTREMITIES: excoriations on LE b/l 2/2 scratching. 3+ edema b/l LE. DP 2+, TP 1+ b/l. hyperpigmentatiion on dorsal aspect of foot. NEUROLOGICAL: Normal speech, gait not observed. PSYCH: Normal mood, normal affect. LABS Laboratory Results - last 24 hr 12/16/19 12/16/19 12/16/19 22:00 22:00 22:00 WBC 12.1 H RBC 4.82 Hgb 14.4 Hct 44.3 D MCV 92.0 MCH 29.9 D MCHC 32.5 RDW 14.4 D Plt Count 280 MPV 7.7 Absolute Neuts (auto) 8.7 H Neutrophils % 71.5 Lymphocytes % 16.1 Monocytes % 6.3 Eosinophils % 5.5 H Basophils % 0.6 Nucleated RBC % 0 PT with INR 16.40 H INR 1.39 H Sodium 140 Potassium 4.0 Chloride 104 Carbon Dioxide 31 Anion Gap 6 L BUN 15.0 Creatinine 1.0 Est GFR (CKD-EPI)AfAm 68.95 Est GFR (CKD-EPI)NonAf 59.49 POC Glucometer Random Glucose 97 Calcium 8.9 Magnesium 2.0 Total Bilirubin 0.6 AST 22 ALT 31 Alkaline Phosphatase 119 H Troponin I < 0.02 B-Natriuretic Peptide 512.3 H Total Protein 7.3 Albumin 3.8 TSH Urine Color Urine Appearance Urine pH Ur Specific [place] Urine Protein Urine Glucose (UA) Urine Ketones Urine Blood Urine Nitrite Urine Bilirubin Urine Urobilinogen Ur Leukocyte Esterase 12/16/19 12/16/19 12/17/19 22:00 23:16 05:40 WBC 10.7 H RBC 4.83 Hgb 14.3 Hct 43.8 MCV 90.6 MCH 29.7 MCHC 32.7 RDW 14.4 Plt Count 273 MPV 7.9 Absolute Neuts (auto) 6.6 Neutrophils % 61.7 Lymphocytes % 21.5 D Monocytes % 7.2 Eosinophils % 8.9 H Basophils % 0.7 Nucleated RBC % 0 PT with INR INR Sodium Potassium Chloride Carbon Dioxide Anion Gap BUN Creatinine Est GFR (CKD-EPI)AfAm Est GFR (CKD-EPI)NonAf POC Glucometer Random Glucose Calcium Magnesium Total Bilirubin AST ALT Alkaline Phosphatase Troponin I B-Natriuretic Peptide Total Protein Albumin TSH 0.56 Urine Color Yellow Urine Appearance Clear Urine pH 7.5 Ur Specific [place] 1.009 L Urine Protein Negative Urine Glucose (UA) Negative Urine Ketones Negative Urine Blood Negative Urine Nitrite Negative Urine Bilirubin Negative Urine Urobilinogen 1.0 Ur Leukocyte Esterase Negative 12/17/19 12/17/19 05:40 11:15 WBC RBC Hgb Hct MCV MCH MCHC RDW Plt Count MPV Absolute Neuts (auto) Neutrophils % Lymphocytes % Monocytes % Eosinophils % Basophils % Nucleated RBC % PT with INR INR Sodium 142 Potassium 3.6 Chloride 100 Carbon Dioxide 36 H Anion Gap 5 L BUN 13.7 Creatinine 0.9 Est GFR (CKD-EPI)AfAm 78.32 Est GFR (CKD-EPI)NonAf 67.57 POC Glucometer 92 Random Glucose 81 Calcium 9.2 Magnesium 1.9 Total Bilirubin AST ALT Alkaline Phosphatase Troponin I < 0.02 B-Natriuretic Peptide Total Protein Albumin TSH 1.16 Urine Color Urine Appearance Urine pH Ur Specific [place] Urine Protein Urine Glucose (UA) Urine Ketones Urine Blood Urine Nitrite Urine Bilirubin Urine Urobilinogen Ur Leukocyte Esterase HOSPITAL COURSE: 64 y.o. F PMHx of HTN, A-fib on xarelto presented from home with complaint of bilateral lower extremity edema and itching x4days. Was seen by her Architectural Intern(Brie) who started Lasix 20mg for BLE edema. Was seen in Urgent Care and given prednisone and benadryl. Came to ED b/c she felt that rash wasnt improving and her PCP wasnt available to see her. Denies change in laundry detergents, allergen exposure. Initial labwork notable for WBC 12.1, BNP 512.3, troponin neg x2. ED physical exam was notable for BLE pitting edema, but clear lungs. White count showed elevated eosinohils, suggesting an allergic process. Cardio(Brie) was consulted and the Echo was normal. Cleared for discharge home. Held amlodipine, valsartan, spironolactone for concerns of allergic reaction. Sent home with change metoprolol to carvedilol 12.5 mg BID and increase HCTZ to 25 mg daily, incr lasix to 40, New rx of prednisone 40mg x3d, steroid cream prn Date of Admission:12/17/19 Date of Discharge: 12/17/19 Minutes to complete discharge: 43 Discharge Summary Problems reviewed: Yes Reason For Visit: CONGESTIVE HEART FAILURE, EDEMA, FAILURE OF Current Active Problems Cellulitis (Acute) Congestive heart failure (Acute) Edema (Acute) Insufficient sleep syndrome (Acute) GAEL (obstructive sleep apnea) (Acute) Shift work sleep disorder (Acute) Condition: Stable - Instructions Diet, Activity, Other Instructions: You came in for 5 days of swelling in your legs and itchiness that later involved your arms. You were given IV benadryl to manage your itching and lasix to help decrease the swelling in your legs. An echocardiogram was done to evaluate the heart functionality. It showed your heart has normal size and function. Your EKG showed atrial afibrillation, which is a chronic issue for you. You are stable for discharge. MEDICATIONS -Please start applying hydrocortisone cream 1% to affected areas. -Please start taking prednisone 40mg once a day for 3 days. -Please apply [id number] Bacitracin to areas of open wounds. -You may take [id number] Benadryl for itchiness. If you notice fatigue with benadryl use, you may use [id number] Cetirizine instead. Please STOP taking amlodipine, valsartan/hydrochlorothiazide tab, spironolactone for concern of allergic reaction, edema. Please STOP taking metoprolol. Your furosemide (lasix) has been increased to 40 mg PO once a day. Please START taking carvedilol 12.5 mg twice a day. Please START taking hydrochlorothiazide 25 mg once a day. Additional Instructions: - avoid scratching, use ice packs for relief FOLLOW-UP Please follow-up with your primary care physician, Dr. Chandra, regarding this hospital visit for your swelling and itchiness & for general health maintenance. Please follow-up with your coupon and bond collection clerk, Dr. Baird, for management of your blood pressure and atrial fibrillation. Please seek medical care if you have worsening symptoms Referrals: Bridget Baird MD [Staff Physician] - Helga Chandra MD [Primary Care Provider] - Disposition: HOME - Home Medications Comprehensive Discharge Medication List: Ambulatory Orders Rivaroxaban [Xarelto] 20 mg PO DAILY 12/16/19 Carvedilol [Coreg -] 12.5 mg PO BID #60 tablet 12/17/19 Furosemide 40 mg PO DAILY 30 Days #30 tablet 12/17/19 Hydrochlorothiazide [Hctz -] 25 mg PO DAILY #30 tablet 12/17/19 Hydrocortisone 1% Ointment [Hytone 1% Ointment -] 1 applic TP DAILY #1 tube 12/17/19 predniSONE [Deltasone -] 40 mg PO DAILY 3 Days #6 tablet 12/17/19 This patient is new to me today: Yes Date on this admission: 12/17/19 Emergency Visit: No Critical Care patient: No - Discharge Referral Referred to [facility] Med [facility].C[facility] No ATTENDING PHYSICIAN STATEMENT I saw and evaluated the patient. I reviewed the resident's note and discussed the case with the resident. I agree with the resident's findings and plan as documented. SUBJECTIVE: OBJECTIVE: ASSESSMENT AND PLAN:
[2019-12-17] MEDS ORDERED: RIVAROXABAN 20 MG TABLET PO SCH (18:00)
[2019-12-17] MEDS ORDERED: CARVEDILOL 12.5 MG TABLET (FP) PO SCH (22:00)
== END 2019-12-17 15:15 | disposition home or self-care (01) | DRG 292 ==
LOC: JER 19:28 → JERBED 21:45 → OBSVTOIN 12-17 02:10
PROVIDERS: ADMIT Internal Medicine; ATTEND Internal Medicine
DX: I11.0 Hypertensive heart disease with heart failure (principal); L03.119 Cellulitis of unspecified part of limb; I48.91 Unspecified atrial fibrillation; E04.1 Nontoxic single thyroid nodule; E66.9 Obesity, unspecified; I50.810 Right heart failure, unspecified; Z68.34 Body mass index [BMI] 34.0-34.9, adult; D72.829 Elevated white blood cell count, unspecified; L29.9 Pruritus, unspecified; G47.26 Circadian rhythm sleep disorder, shift work type; G47.33 Obstructive sleep apnea (adult) (pediatric); F51.12 Insufficient sleep syndrome; Z98.84 Bariatric surgery status
CPT/HCPCS: 36415; 71046-TC-FY; 80048; 80053; 81003; 82962; 83735; 83880; 84443; 84484; 85025; 85610; 86038; 93005; 93010; 93306-TC; 93970-TC; 99285-25; G0378; U0003

== ENCOUNTER 2020-02-25 11:11 | Observation (INO) | payer BC ==
--- NOTE | 2020-02-25 11:16 | PDOC ---
History of Present Illness - General Chief Complaint: CVA/TIA Stated Complaint: ALLERGIC REACTION - History of Present Illness Initial Comments: 02/25/20 12:35 64 yo female with pmh htn and afib presents to ED for swollen tongue and chest pain that started earlier today. Pt explains she was eating peanut butter at 9 am today then 20 minutes later she explains she has tongue swelling and right sided sharp nonradiating chest pain. Pt also explains she had some difficulty speaking due to possibly her enlarged tongue and twitching of her right eye. Pt daughter is with her and said that her speech is off from baseline. Pt does have left sided facial palsy but according to daughter that has been like that for 10 years due to [place] Palsy. Pt also has associated itchy red rash on arms and legs that is been going on for one month but worse today when she ate the peanut butter. Pt also has associated nausea with one episode of nbnb emesis and SOB. Pt denies lightheadedness, weakness in one arm or leg, denies dysuria, or urinary frequency, fevers, or chills. PMH: Afib, htn Meds: Xarelto, htn meds PSH: right foot surgery Allergies: NKA Social: denies smoking drugs, alchohol, and drugs PCP: Dr. Helga Chandra tPA Exclusion Checklist 0-3hr - Time Elapsed Date last known well: 02/25/20 Time last known well: 09:00 Elaspsed time: Day(s) and 6 Hour(s) and 16 Minutes - Relative Exclusion Criteria 0-3h Care team unable to determine eligibility: Yes (Believe to be anaphylaxis vs CVA. ) tPA Exclusion checklist 3-4.5h - Time Elapsed Date last known well: 02/25/20 Time last known well: 09:00 Elaspsed time: Day(s) and 6 Hour(s) and 16 Minutes - Relative Exclusion Criteria 3-4.5 hr Care team unable to determine eligibility: Yes (Believe to be anaphylaxis ) NIH Stroke Scale - Last Known Well Date/Time & Onset Date Last Known Well: 02/25/20 Time Last Known Well: 09:00 - Initial Evaluation Level of consciousness: Alert Ask patient the month and their age: Answers both correctly Ask patient to open & close eyes; make fist and let go: Obeys both correctly Best gaze (horizontal eye movement): Normal Visual field testing: No visual field loss Facial paresis (Show teeth/raise eyebrows/close eyes tight): Complete paralysis of one or both sides (Upper and lower face) Motor Function: Left Arm: Normal Motor Function: Right Arm: Normal (extends arm 90 (or 45) degrees for 10 seconds without drift Motor Function: Left Leg: Normal (extends leg 30 degrees for 5 seconds without drift) Motor Function: Right Leg: Normal (extends leg 30 degrees for 5 seconds without drift) Limb Ataxia: No ataxia Sensory(Use pinprick test arms,legs,trunk,face/side to side): Normal Best language (Describe picture, name items, read sentences): Mild to moderate aphasia Dysarthria (read several words): Mild to moderate slurring of words Extinction and Inattention: No abnormality - Total Score NIH Stroke Scale Score: 5 Past History - Medical History Allergies/Adverse Reactions: Allergies Allergy/AdvReac Type Severity Reaction Status Date / Time No Known Drug Allergies Allergy Verified 10/09/14 08:56 Home Medications: Ambulatory Orders Rivaroxaban [Xarelto] 20 mg PO DAILY 12/16/19 Carvedilol [Coreg -] 12.5 mg PO BID #60 tablet 12/17/19 Furosemide 40 mg PO DAILY 30 Days #30 tablet 12/17/19 Hydrochlorothiazide [Hctz -] 25 mg PO DAILY #30 tablet 12/17/19 Cefuroxime 500 mg PO BID 02/07/20 Collagenase Clostridium Hist. [Santyl] 1 applic TP DAILY #90 oint...g. 02/07/20 Hydroxyzine HCl 1 tab PO DAILY 02/07/20 Anemia: No Asthma: No Cancer: No Cardiac Disorders: Yes (AFIB) CVA: No COPD: No CHF: No Dementia: No Diabetes: No GI Disorders: No Disorders: No HTN: Yes Hypercholesterolemia: No Liver Disease: No Seizures: No Thyroid Disease: No - Surgical History Abdominal Surgery: Yes (GASTRIC BYPASS-1999) Appendectomy: Yes (MANY YEARS AGO) Cardiac Surgery: No Cholecystectomy: No Lung Surgery: No Neurologic Surgery: No Orthopedic Surgery: No - Psycho-Social/Smoking History Smoking History: Never smoked Have you smoked in the past 12 months: No Review of Systems - Review of Systems Comments:: 02/25/20 13:13 GENERAL/CONSTITUTIONAL: No fever or chills. No weakness. HEAD, EYES, EARS, NOSE AND THROAT: No change in vision. No ear pain or discharge. No sore throat. CARDIOVASCULAR: Chest pain and SOB RESPIRATORY: No cough, wheezing, or hemoptysis. GASTROINTESTINAL: Nausea and vomiting GENITOURINARY: No dysuria, frequency, or change in urination. MUSCULOSKELETAL: No joint or muscle swelling or pain. No neck or back pain. SKIN: Rash on arms and legs NEUROLOGIC: No headache, vertigo, loss of consciousness, or change in strength/sensation. ENDOCRINE: No increased thirst. No abnormal weight change ALLERGIC/IMMUNOLOGIC: No hives or skin allergy. *Physical Exam - Physical Exam 02/25/20 13:53 GENERAL: Awake, alert, and fully oriented, in no acute distress HEAD: No signs of trauma, normocephalic, atraumatic EYES: PERRLA, EOMI, sclera anicteric, conjunctiva clear ENT: Auricles normal inspection, hearing grossly normal, nares patent, tongue swollen, unable to see tonsils NECK: Normal ROM, supple, no lymphadenopathy, JVD, or masses LUNGS: No distress, speaks full sentences, clear to auscultation bilaterally HEART: Regular rate and rhythm, normal S1 and S2, no murmurs, rubs or gallops, peripheral pulses normal and equal bilaterally. ABDOMEN: Soft, nontender, normoactive bowel sounds. No guarding, no rebound. No masses EXTREMITIES : Normal inspection, Normal range of motion, no edema. No clubbing or cyanosis. NEUROLOGICAL: Cranial nerves II through XII intact. Normal speech, normal gait, no focal sensorimotor deficits. Finger to nose intact. Heel to payne intact. SKIN: Erythema on bilateral upper and lower ext. ED Treatment Course - LABORATORY CBC & Chemistry Diagram: 02/25/20 11:43 02/25/20 11:43 Medical Decision Making - Medical Decision Making 02/25/20 14:22 64 yo f with pmh htn and afib presents to ED with left sided facial paralysis (possibly due to [place] ten years ago), coming in for chest pain, sob, and tongue swelling after eating peanut butter. Pt has difficulty finding words and slurring words. Pt as we were putting in IV had syncopal event where she passed out. Pt code card was activated and got CT and CTA which was negative for acute stroke. Rule out CVA, and anaphylactic reaction Will give benadryl, Steroids, aspirin, and high dose statin. Will get stroke labs and admit for stroke Dr. Barajas called and message left at office. Resident Dr. Sheridan was told about pt HPI, ED course, and Plan. Pt has been admitted to Dr. Linder. Dr. Linder has said he will call Dr. Barajas on cell phone and asked to put in MRI and Carotid Ultrasound. Discharge - Discharge Information Problems reviewed: Yes Clinical Impression/Diagnosis: Allergy Qualifiers: Encounter type: initial encounter Qualified Code(s): T78.40XA - Allergy, unspecified, initial encounter CVA (cerebral vascular accident) Qualifiers: CVA mechanism: embolism Precerebral and cerebral artery: middle cerebral artery Laterality of affected vessel: unspecified Qualified Code(s): I63.419 - Cerebral infarction due to embolism of unspecified middle cerebral artery Condition: Guarded - Admission Yes - Follow up/Referral - Patient Discharge Instructions - Post Discharge Activity
[2020-02-25] MEDS ORDERED: EPINEPHrine 1:1,000 0.3 MG/0.3 ML SYR IM ONE (11:17)
[2020-02-25 11:23] VITALS: BMI 36.8
--- OUTSIDE RECORDS SUMMARY | 2020-02-25 11:36 | XMS ---
:1955 Author Organization [facility] Support Name Relationship Address Phone [employer] Unavailable [address] [phone] [place] [address] NEY VIDHYA DAUGHTER [address] [place] [address] NEY VIDHYA Child [address] [place] [address] Re-disclosure Warning The records that you are about to access may contain information from federally- assisted alcohol or drug abuse programs. If such information is present, then the following federally mandated warning applies: This information has been disclosed to you from records protected by federal confidentiality rules (42 CFR part 2). The federal rules prohibit you from making any further disclosure of this information unless further disclosure is expressly permitted by the written consent of the person to whom it pertains or as otherwise permitted by 42 CFR part 2. A general authorization for the release of medical or other information is NOT sufficient for this purpose. The Federal rules restrict any use of the information to criminally investigate or prosecute any alcohol or drug abuse patient.The records that you are about to access may contain highly sensitive health information, the redisclosure of which is protected by Article 27-F of the [facility] Public Health law. If you continue you may haveaccess to information: Regarding HIV / AIDS; Provided by facilities licensed or operated by the [facility] Office of Mental Health; or Provided by the [facility] Office for People With Developmental Disabilities. If such information is present, then the following [facility] mandated warning applies: This information has been disclosed to you from confidential records which are protected by state law. State law prohibits you from making any further disclosure of this information without the specific written consent of the person to whom it pertains, or as otherwise permitted by law. Any unauthorized further disclosure in violation of state law may result in a fine or mcc sentence or both. A general authorization for the release of medical or other information is NOT sufficient authorization for further disclosure. Insurance Providers Payer name Policy type / Policy ID Covered Covered republican's Policy Plan Coverage type republican ID relationship to [employer] Information past[employer] BC EPO [id number] SP [id number] [employer] HMO [id number] SP [id number] Results ID Date Data Source [id number] 12/16/2019 10:15:00 PM EDT [facility] Name Value Range Interpretation Description Data Sup porting Code Source(s) Document(s ) SARS [facility] coronavirus 2 RNA This lab was ordered by [facility] and reported by [facility]. Procedure
[2020-02-25] MEDS ORDERED: methylPREDNISolone NA SUCC 125 MG/2 ML VIAL IVPB ONE (12:33)
[2020-02-25] MEDS ORDERED: ASPIRIN 81 MG CHEWABLE TABLETS PO ONE (12:58)
[2020-02-25] MEDS ORDERED: methylPREDNISolone NA SUCC 125 MG/2 ML VIAL ONE (13:03)
[2020-02-25] MEDS ORDERED: ASPIRIN 81 MG CHEWABLE TABLETS ONE (13:03)
[2020-02-25] MEDS ORDERED: ATORVASTATIN CA 40 MG TABLET (FP) PO ONE (13:07)
[2020-02-25 13:20] LABS: BASO % 0.5 % (0-2.0); EOS % 0.8 % (0-4.5); HEMOGLOBIN 14.8 GM/dL (10.7-15.3); LYMPH % 21.6 % (8-40); MCHC 32.9 g/dl (32.0-36.0); MEAN CELL VOLUME 91.1 fl (80-96); MEAN PLT VOLUME 8.4 fl (7.5-11.1); MONO % 3.9 % (3.8-10.2); NEUT % 73.2 % (42.8-82.8); PLATELET COUNT 277 K/MM3 (134-434); RBC 4.94 M/mm3 (3.60-5.2); RDW 14.1 % (11.6-15.6); WHITE BLOOD COUNT 8.2 K/mm3 (4.0-10.0)
[2020-02-25] MEDS: SODIUM CHLORIDE 1,000 ML IV SCH (13:21)
[2020-02-25] MEDS ORDERED: ATORVASTATIN CA 40 MG TABLET (FP) ONE (13:37)
[2020-02-25 13:40] LABS: CHOLESTEROL 148 mg/dL (50-200); HDL CHOLESTEROL 64 mg/dL (40-60); LDL CHOLESTEROL (ONLY SJRH) 73 mg/dL (5-100); TRIGLYCERIDES 47 mg/dL (0-150)
[2020-02-25 13:42] LABS: ALK PHOS 96 U/L (45-117); ANION GAP 5 MMOL/L (8-16); BILIRUBIN,TOTAL 0.7 mg/dL (0.2-1); BLOOD UREA NITROGEN 17.1 mg/dL (7-18); CALCIUM 8.3 mg/dL (8.5-10.1); CHLORIDE 103 mmol/L (98-107); CO2 31 mmol/L (21-32); CREATININE 0.9 mg/dL (0.55-1.3); GLUCOSE,RANDOM 126 mg/dL (74-106); POTASSIUM 3.2 mmol/L (3.5-5.1); SGOT/AST 25 U/L (15-37); SGPT/ALT 27 U/L (13-61); SODIUM 139 mmol/L (136-145); TOT PROT 6.1 g/dl (6.4-8.2)
[2020-02-25 13:48] LABS: INR 2.23 (0.83-1.09); PROTHROMBIN TIME (PATIENT) 25.7 SEC (9.7-13.0)
[2020-02-25 13:51] LABS: ACTIVATED PTT 41.8 SECONDS (25.2-36.5)
[2020-02-25] MEDS ORDERED: POTASSIUM CHLORIDE TABS 20 MEQ TABLET.ER (FP) PO ONE ×2 (13:51→15:27)
--- NOTE | 2020-02-25 14:21 | PDOC ---
Documentation entered by Sajan Clayton SCRIBE, acting as scribe for Te Cooper MD. Te Cooper MD: This documentation has been prepared by the scribe, Sajan Clayton SCRIBE, under my direction and personally reviewed by me in its entirety. I confirm that the documentation accurately reflects all work, treatment, procedures, and medical decision making performed by me. 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 Per EMS, the patient was reported as having an allergic reaction to peanut butter but the patient notes she has had peanut butter in the past without symptoms. The patient reports she was in her usual state of health before the onset of these symptoms. SHe reports itching to her b/l UE for 2-3 months and states her arms have been more itchy today. Denies hx allergic reactions. Denies hx taking lisinopril or any other kiara inhibitors. Reports she has been taking her xarelto daily, last dose last night. The patient denies headache, focal weakness or numbness, chest/abdominal/back pain, cough, and shortness of breath. Denies fever, chills, nausea, vomiting, and/or any GI symptoms. Denies any symptoms. Denies any other symptoms. Allergies: NKDA Social Hx: None reported Surgical Hx: gastric band, appendectomy - Physicial Exam PE: GENERAL: Awake, alert, and fully oriented, in no acute distress EYES: PERRLA, EOMI, sclera anicteric, conjunctiva clear ENT: Auricles normal inspection, hearing grossly normal, nares patent, oropharynx clear without exudates. Tongue with mild edema, uvula visualized in midline w/o edema. Moist mucosa NECK: Normal ROM, supple, no lymphadenopathy, JVD, or masses LUNGS: Breath sounds equal, clear to auscultation bilaterally. No wheezes, and no crackles HEART: Regular rate and rhythm, normal S1 and S2, no murmurs, rubs or gallops ABDOMEN: Soft, nontender, normoactive bowel sounds. No guarding, no rebound. No masses EXTREMITIES: Normal range of motion, no edema. No clubbing or cyanosis. No cords, erythema, or tenderness BACK: No midline spinal tenderness in cervical/thoracic/lumbar region NEUROLOGICAL: Mild word finding difficulty and slurred speech, +L sided facial droop including forehead (daughter at bedside and pt state is old), + intermittent twitching of L eye and face. Remaining cranial nerves intact, negative pronator drift, 5/5 strength in all 4 extremities, normal sensation to light touch in all 4 extremities, normal cerebellar exam, normal gait, normal reflexes and tone SKIN: Superficial excoriations to b/l arms and legs with mild erythema to forearms. No hives. Otherwise, warm, dry, normal turgor, no rashes or lesions noted. - Medical Decision Making 02/25/20 13:54 64yo F MMP including Afib on xarelto, HTN presnts to the ED with speech difficulty, possible tongue edema, and 2 months of UE rash Code mann was activated given speech abnormality but CTH negative. Pt not a TPA candidate given on xarelto. Vitals with elevated BP in the field per EMS to 180s systolic. In ED, BP normali zed. Exam with facial twitching and mild word finding difficulty EKG with AF w SVR, rate 70, no ABE While resident was placing IV, pt became lightheaded, nauseous, diaphoretic and bradycardic to 40s/50s for <1 min, no LOC likely vasovagal episode Rpt EKG again with AF w SVR, rate 59, no changes compared to EKG done earlier CTA obtained which did not show any large vessel occlusions Labs not revealing of infections/metabolic causes Impression is partial seizure vs CVA vs allergic reaction UE redness has resolved after benadryl, but tongue remains mildly edematous Pt given steroids, will admit for further w.u Discharge - Discharge Information Problems reviewed: Yes Clinical Impression/Diagnosis: Facial twitching, Speech abnormality Allergy Qualifiers: Encounter type: initial encounter Qualified Code(s): T78.40XA - Allergy, unspecified, initial encounter CVA (cerebral vascular accident) Qualifiers: CVA mechanism: embolism Precerebral and cerebral artery: middle cerebral artery Laterality of affected vessel: unspecified Qualified Code(s): I63.419 - Cerebral infarction due to embolism of unspecified middle cerebral artery Condition: Guarded - Follow up/Referral - Patient Discharge Instructions - Post Discharge Activity
--- OUTSIDE RECORDS SUMMARY | 2020-02-25 14:26 | XMS ---
:1955 Author Organization [facility] Support Name Relationship Address Phone [employer] Unavailable [address] [phone] [place] [address] NEY VIDHYA DAUGHTER [address] [place] [address] NEY VIDHYA Child [address] [place] [address] Re-disclosure Warning The records that you are [...] is protected by Article 27-F of the [facility] Public Health law. If you continue you may haveaccess to information: Regarding HIV / AIDS; Provided by facilities licensed or operated by the [facility] Office of Mental Health; or Provided by the [facility] Office for People With Developmental Disabilities. If such information is present, then the following [facility] mandated warning applies: This information has been [...] law may result in a fine or group home sentence or both. A general authorization for the release of medical or other information is NOT sufficient authorization for further disclosure. Insurance Providers Payer name Policy type / Policy ID Covered Covered green party's Policy Plan Coverage type green party ID relationship to [employer] Information pastrana BC EPO [id number] SP [id number] [employer] HMO [id number] SP [id number] Results ID Date Data Source [id number] 12/16/2019 10:15:00 PM EDT [facility] Name Value Range Interpretation Description Data Sup porting Code Source(s) Document(s ) SARS [facility] coronavirus 2 RNA This lab was ordered by [facility] and reported by [facility]. Procedure
--- NOTE | 2020-02-25 14:36 | HP ---
CHIEF COMPLAINT: facial drooping, tongue swelling PCP: HISTORY OF PRESENT ILLNESS: Patient is a 64 year old female with history of Afib (on Rivaroxiban) hypertension, Tripathi's Palsy, presents with complaint of facial drooping, with associated tongue swelling. Patient endorses symptoms began while at work approx 9-10AM with sudden onset. Unable to describe inciting features. Denies any fall or trauma. She immediately texted her daughter who said she had difficulty understanding her mother, which prompted Emergency Department presentation. Denies subjective fevers, chills, shortness of breath, chest pain, palpitations, abdominal pain, nausea, vomiting. 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 1 applic TP DAILY #90 oint...g. 02/07/20 [Santyl] Hydroxyzine HCl 1 tab PO DAILY 02/07/20 REVIEW OF SYSTEMS As per HPI. History limited given patient's clinical presentation. PHYSICAL EXAMINATION Vital Signs - 24 hr 02/25/20 11:21 Temperature 98.3 F Pulse Rate 85 Respiratory 20 Rate Blood Pressure 140/103 H O2 Sat by Pulse 100 Oximetry (%) GENERAL: Awake, alert, and fully oriented, in mild distress. HEAD: Normal with no signs of trauma. EYES: Pupils equal, round and reactive to light, extraocular movements intact, sclera anicteric, conjunctiva clear. No lid lag. EARS, NOSE, THROAT: Ears normal, nares patent, oropharynx clear without exudates. Moist mucous membranes. NECK: Normal range of motion, supple without lymphadenopathy, JVD, or masses. LUNGS: Breath sounds equal, clear to auscultation bilaterally. No wheezes, and no crackles. No accessory muscle use. HEART: Regular rate and rhythm, normal S1 and S2 without murmur, rub or gallop. ABDOMEN: Soft, nontender, not distended, normoactive bowel sounds, no guarding, no rebound, no masses. No hepatomegaly or splenomegaly. MUSCULOSKELETAL: Normal range of motion at all joints. No bony deformities or tenderness. No CVA tenderness. UPPER EXTREMITIES: 2+ pulses, warm, well-perfused. No cyanosis. No clubbing. No peripheral edema. Strength 5/5. Negative pronator drift. LOWER EXTREMITIES: 2+ pulses, warm, well-perfused. No calf tenderness. No peripheral edema. Strength 5/5. Negative pronator drift. NEUROLOGICAL: Complete left sided facial drooping noted, does not correct with effort. Speech is dysarthric. Tongue does not deviate. Sensation intact bilateral face. PSYCHIATRIC: Cooperative. Good eye contact. Appropriate mood and affect. SKIN: Warm, dry. Laboratory Results - last 24 hr 02/25/20 02/25/20 02/25/20 11:30 11:43 11:43 WBC RBC Hgb Hct MCV MCH MCHC RDW Plt Count MPV Absolute Neuts (auto) Neutrophils % Lymphocytes % Monocytes % Eosinophils % Basophils % Nucleated RBC % PT with INR 25.70 H INR 2.23 H PTT (Actin FS) 41.8 H Sodium Potassium Chloride Carbon Dioxide Anion Gap BUN Creatinine Est GFR (CKD-EPI)AfAm Est GFR (CKD-EPI)NonAf POC Glucometer 138 Random Glucose Calcium Total Bilirubin AST ALT Alkaline Phosphatase Creatine Kinase Troponin I Total Protein Albumin Triglycerides 47 Cholesterol 148 Total LDL Cholesterol 73 HDL Cholesterol 64 H Blood Type Antibody Screen 02/25/20 02/25/20 02/25/20 11:43 11:43 11:43 WBC 8.2 RBC 4.94 Hgb 14.8 Hct 45.0 MCV 91.1 MCH 30.0 MCHC 32.9 RDW 14.1 Plt Count 277 MPV 8.4 Absolute Neuts (auto) 6.0 Neutrophils % 73.2 Lymphocytes % 21.6 Monocytes % 3.9 Eosinophils % 0.8 D Basophils % 0.5 Nucleated RBC % 0 PT with INR INR PTT (Actin FS) Sodium 139 Potassium 3.2 L Chloride 103 Carbon Dioxide 31 Anion Gap 5 L BUN 17.1 Creatinine 0.9 Est GFR (CKD-EPI)AfAm 78.32 Est GFR (CKD-EPI)NonAf 67.57 POC Glucometer Random Glucose 126 H Calcium 8.3 L Total Bilirubin 0.7 AST 25 ALT 27 Alkaline Phosphatase 96 Creatine Kinase 98 Troponin I < 0.02 Total Protein 6.1 L Albumin 3.0 L Triglycerides Cholesterol Total LDL Cholesterol HDL Cholesterol Blood Type O POSITIVE Antibody Screen Negative ASSESSMENT/PLAN: Patient is a 64 year old female with history of Afib (on Rivaroxiban) hypertension, Tripathi's Palsy, presents with complaint of facial drooping, with associated tongue swelling. Acute CVA vs. Tripathi's Palsy -Facial drooping with dysarthria, however sensation remains intact bilateral face, upper, and lower extremities with strength 5/5 bilateral upper and lower extremities. Noted history of prior Tripathi's Palsy. -CT head does not reveal acute pathology -Follow MRI brain -Obtain transthoracic ECHO, carotid duplex -Neurology evaluation (Dr. Sherman) appreciated -Will initiate Prednisone 60mg PO daily for treatment of suspected Tripathi's Palsy -NPO -IV normal saline at 42mL/ hour -Speech swallow evaluation -Physical therapy evaluation -Aspiration precautions -Fall precautions History of Afib -Currently rate controlled -Continue Rivaroxiban History of hyprtension -Holding home antihypertensives to allow for permissive hypertension -Reinstate after 24 hours, once clinically appropriate -Monitor vital signs closely FEN -IV normal saline at 42mL/ hour -Follow BMP -NPO, pending speech, swallow evaluation Prophylaxis -Continue Rovaroxiban Disposition -Admit STROKE floor Family Medical History Family History: Unable to Obtain Visit type - Emergency Visit Emergency Visit: Yes ED Registration Date: 02/25/20 Care time: The patient presented to the Emergency Department on the above date and was hospitalized for further evaluation of their emergent condition. - New Patient This patient is new to me today: Yes Date on this admission: 02/25/20 - Critical Care Critical Care patient: No ATTENDING PHYSICIAN STATEMENT I saw and evaluated the patient. I reviewed the resident's note and discussed the case with the resident. I agree with the resident's findings and plan as documented. SUBJECTIVE: OBJECTIVE: ASSESSMENT AND PLAN:
--- NOTE | 2020-02-25 14:37 | PN.NIHSS ---
NIH Stroke Scale - Last Known Well Date/Time & Onset Date Last Known Well: 02/25/20 Time Last Known Well: 08:00 - Initial Evaluation Level of consciousness: Alert Ask patient the month and their age: Answers both correctly Ask patient to open & close eyes; make fist and let go: Obeys both correctly Best gaze (horizontal eye movement): Normal Visual field testing: No visual field loss Facial paresis (Show teeth/raise eyebrows/close eyes tight): Complete paralysis of one or both sides (Upper and lower face) Motor Function: Left Arm: Normal Motor Function: Right Arm: Normal (extends arm 90 (or 45) degrees for 10 seconds without drift Motor Function: Left Leg: Normal (extends leg 30 degrees for 5 seconds without drift) Motor Function: Right Leg: Normal (extends leg 30 degrees for 5 seconds without drift) Limb Ataxia: No ataxia Sensory(Use pinprick test arms,legs,trunk,face/side to side): Normal Best language (Describe picture, name items, read sentences): No Aphasia Dysarthria (read several words): Near unintelligible or unable to speak Extinction and Inattention: No abnormality - Total Score NIH Stroke Scale Score: 5
--- NOTE | 2020-02-25 18:23 | CON.NEURO ---
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 Stroke protocol was initiated! Patient had a CAT scan of the head patient had an MRI of the brain which revealed no evidence of stroke. - History Source History Provided By: Patient Limitations to Obtaining History: No Limitations - Past Medical History Pulmonary: Yes: Bronchitis, Sleep Apnea. No: Asthma, Cancer, COPD, O2 Depen dent, Pneumonia, Previously Intubated, Pulmonary Embolus, Pulmonary Fibrosis ...: No - Alcohol/Substance Use Hx Alcohol Use: No - Smoking History Smoking history: Never smoked Have you smoked in the past 12 months: No Home Medications - Allergies Allergies/Adverse Reactions: Allergies Allergy/AdvReac Type Severity Reaction Status Date / Time No Known Drug Allergies Allergy Verified 10/09/14 08:56 - Home Medications Home Medications: Ambulatory Orders Rivaroxaban [Xarelto] 20 mg PO DAILY 12/16/19 Carvedilol [Coreg -] 12.5 mg PO BID #60 tablet 12/17/19 Hydrochlorothiazide [Hctz -] 25 mg PO DAILY #30 tablet 12/17/19 Hydroxyzine HCl 25 mg PO DAILY 02/25/20 Family Medical History Family History: Unremarkable Review of Systems - Review of Systems Neurological: reports: Dizziness, Headache, Incoordination, Numbness Physical Exam-Neuro Vital Signs: Vital Signs Temperature 98.3 F 02/25/20 11:21 Pulse Rate 85 02/25/20 11:21 Respiratory Rate 20 02/25/20 11:21 Blood Pressure 140/103 H 02/25/20 11:21 O2 Sat by Pulse Oximetry (%) 100 02/25/20 11:21 Labs: CBC, BMP 02/25/20 11:43 02/25/20 11:43 INR, PTT INR 2.23 (0.83-1.09) H 02/25/20 11:43 - Neuro Exam Level Of Consciousness: Yes: Oriented to Person, Oriented to Place, Oriented to Time Eyes: Yes: PERRLA Speech: Garbled Dominant Hand: Right Cranial Nerves II-XII Intact: Yes Gag: Present DTR's: 1+ Left Bicep, 1+ Right Bicep, 1+ Left Tricep, 1+ Right Tricep Response to light touch: Normal Response to pain prick: Normal Motor Strength: 3/5: Left Arm, Right Arm, Left Leg, Right Leg Imaging - Results Cat Scan: Image Reviewed Ultrasound: Image Reviewed MRI: Image Reviewed Problem List - Problems (1) CVA (cerebral vascular accident) Code(s): I63.9 - CEREBRAL INFARCTION, UNSPECIFIED Qualifiers: CVA mechanism: embolism Precerebral and cerebral artery: middle cerebral ar tomasa Laterality of affected vessel: unspecified Qualified Code(s): I63.419 - Cerebral infarction due to embolism of unspecified middle cerebral artery (2) Facial twitching Code(s): G51.4 - FACIAL MYOKYMIA (3) Speech abnormality Code(s): R47.9 - UNSPECIFIED SPEECH DISTURBANCES Assessment/Plan mechanical speech dysarthria No evidence of aphasia No evidence of stroke. 1. No aspirin. 2. Discharge planning. 3. Swallow evaluation. 4. Homocysteine level. Thank you very much for referring this patient for neurological consultation. Radha Sherman M.D. [phone]
[2020-02-25] MEDS ORDERED: RIVAROXABAN 20 MG TABLET PO SCH (19:30)
--- NOTE | 2020-02-25 22:28 | PN ---
Teaching Attending Note Name of Resident: Robert Larios ATTENDING PHYSICIAN STATEMENT I saw and evaluated the patient. I reviewed the resident's note and discussed the case with the resident. I agree with the resident's findings and plan as documented. SUBJECTIVE: Patient seen and examined at bedside, admitted for L facial droop including forehead muscles suspicious for Tripathi's palsy. Steroids started, Neurology consulted, VSS. OBJECTIVE: GA AAOx3, notable dysarthria but answers to questions appropriately HEENT L facial droop involving UMN/LMN, no uvula deviation, no tongue deviation, neck supple. Chest CTAB, no stridor CVS irregularly irregular, regular rate Abd soft, NT< ND, BS+ Ext moves all 4 ext, 4/5 strength UE and LE Neuro COmplete L facial droop including forehead, sensation intact in face/UE/LE and equal. EOMI, eyes cross midline. Vital Signs (72 hours) 02/25/20 02/25/20 02/25/20 11:21 11:26 11:30 Temperature 98.3 F Pulse Rate 85 Pulse Rate [ 86 78 Apical] Respiratory 20 18 18 Rate Blood Pressure 140/103 H Blood Pressure 142/112 H 144/129 H [Right Arm] O2 Sat by Pulse 100 100 Oximetry (%) 02/25/20 02/25/20 02/25/20 13:30 14:30 15:30 Temperature Pulse Rate Pulse Rate [ 84 84 86 Apical] Respiratory 18 18 17 Rate Blood Pressure Blood Pressure 144/103 H 142/112 H 134/102 H [Right Arm] O2 Sat by Pulse 100 Oximetry (%) Laboratory Results - last 24 hr 02/25/20 02/25/20 02/25/20 11:30 11:43 11:43 WBC RBC Hgb Hct MCV MCH MCHC RDW Plt Count MPV Absolute Neuts (auto) Neutrophils % Lymphocytes % Monocytes % Eosinophils % Basophils % Nucleated RBC % PT with INR 25.70 H INR 2.23 H PTT (Actin FS) 41.8 H Sodium Potassium Chloride Carbon Dioxide Anion Gap BUN Creatinine Est GFR (CKD-EPI)AfAm Est GFR (CKD-EPI)NonAf POC Glucometer 138 Random Glucose Calcium Total Bilirubin AST ALT Alkaline Phosphatase Creatine Kinase Troponin I Total Protein Albumin Triglycerides 47 Cholesterol 148 Total LDL Cholesterol 73 HDL Cholesterol 64 H Blood Type Antibody Screen 02/25/20 02/25/20 02/25/20 11:43 11:43 11:43 WBC 8.2 RBC 4.94 Hgb 14.8 Hct 45.0 MCV 91.1 MCH 30.0 MCHC 32.9 RDW 14.1 Plt Count 277 MPV 8.4 Absolute Neuts (auto) 6.0 Neutrophils % 73.2 Lymphocytes % 21.6 Monocytes % 3.9 Eosinophils % 0.8 D Basophils % 0.5 Nucleated RBC % 0 PT with INR INR PTT (Actin FS) Sodium 139 Potassium 3.2 L Chloride 103 Carbon Dioxide 31 Anion Gap 5 L BUN 17.1 Creatinine 0.9 Est GFR (CKD-EPI)AfAm 78.32 Est GFR (CKD-EPI)NonAf 67.57 POC Glucometer Random Glucose 126 H Calcium 8.3 L Total Bilirubin 0.7 AST 25 ALT 27 Alkaline Phosphatase 96 Creatine Kinase 98 Troponin I < 0.02 Total Protein 6.1 L Albumin 3.0 L Triglycerides Cholesterol Total LDL Cholesterol HDL Cholesterol Blood Type O POSITIVE Antibody Screen Negative Home Medications Medication Instructions Recorded Rivaroxaban [Xarelto] 20 mg PO DAILY 12/16/19 Carvedilol [Coreg -] 12.5 mg PO BID #60 tablet 12/17/19 Hydrochlorothiazide [Hctz -] 25 mg PO DAILY #30 tablet 12/17/19 Hydroxyzine HCl 25 mg PO DAILY 02/25/20 Current Medications Generic Name Dose Route Start Last Admin Trade Name Freq PRN Reason Stop Dose Admin Aspirin 81 mg 02/26/20 10:00 Ecotrin - PO DAILY COUNT INCLUDES THE [facility] Atorvastatin Calcium 40 mg 02/26/20 22:00 Lipitor - PO HS LAUREN Sodium Chloride 1,000 mls @ 42 mls/hr 02/25/20 11:30 02/25/20 13:21 Normal Saline - IV 42 mls/hr ASDIR LAUREN Administration Pantoprazole Sodium 40 mg 02/26/20 10:00 Protonix Iv IVPUSH DAILY LAUREN Prednisone 60 mg 02/26/20 11:00 Deltasone - PO DAILY LAUREN Rivaroxaban 20 mg 02/25/20 19:30 Xarelto PO DAILY@1800 COUNT INCLUDES THE [facility] ASSESSMENT AND PLAN: 64 F L facial Tripathi's palsy HTN Afib on AC HLD h/o Tripathi's palsy Low suspicion for CVA Plan: Received 1 dose of IV steroids Cont/ Prednisone at 60mg daily due to high House-Brackmann score/grade Cont. AC Restart BP meds PT referral SS evaluation Send EBV/HSV/Lyme titers DVT ppx: AC Med-surg
[2020-02-26 03:23] LABS: URINE APPEARANCE CLEAR; URINE COLOR YELLOW
[2020-02-26 03:24] LABS: URINE BILIRUBIN NEGATIVE (NEGATIVE); URINE GLUCOSE (UA) NEGATIVE (NEGATIVE); URINE KETONE NEGATIVE (NEGATIVE); URINE NITRITE NEGATIVE (NEGATIVE); URINE PROTEIN 30 (NEGATIVE)
[2020-02-26 03:25] LABS: EPI CELLS 1 /uL (0-25.1); URINE LEUK ESTERASE N (NEGATIVE); URINE RBC 3 /uL (0-23.9); URINE WBC 2 /uL (0-25.8)
[2020-02-26 07:12] LABS: BASO % 0.3 % (0-2.0); HEMATOCRIT 39.8 % (32.4-45.2); HEMOGLOBIN 13.2 GM/dL (10.7-15.3); LYMPH % 12.7 % (8-40); MCH 29.8 pg (25.7-33.7); MEAN CELL VOLUME 90.1 fl (80-96); MEAN PLT VOLUME 7.6 fl (7.5-11.1); MONO % 4.6 % (3.8-10.2); NEUT % 82.4 % (42.8-82.8); PLATELET COUNT 280 K/MM3 (134-434); RBC 4.42 M/mm3 (3.60-5.2); RDW 13.9 % (11.6-15.6); WHITE BLOOD COUNT 10.2 K/mm3 (4.0-10.0)
[2020-02-26 07:59] LABS: ALBUMIN 2.8 g/dl (3.4-5.0); BILIRUBIN,TOTAL 0.6 mg/dL (0.2-1); BLOOD UREA NITROGEN 17.2 mg/dL (7-18); CALCIUM 8.7 mg/dL (8.5-10.1); CREATININE 0.9 mg/dL (0.55-1.3); MAGNESIUM 2.2 mg/dL (1.8-2.4); PHOSPHOROUS 5.1 mg/dL (2.5-4.9); POTASSIUM 3.8 mmol/L (3.5-5.1); TOT PROT 5.9 g/dl (6.4-8.2)
[2020-02-26 08:51] VITALS: TEMP 98
--- NOTE | 2020-02-26 09:57 | CONSULT ---
Admitting History and Physical - Primary Care Physician PCP: Hermelindo Henriquez - Admission History of Present Illness: 64 year old female with history of Afib hypertension, Tripathi's Palsy, presented with complaint of facial drooping, with associated tongue swelling. Selected Entries 02/26/20 02/26/20 02/26/20 00:50 06:18 08:30 Temperature 98.4 F 98.3 F 98.0 F Pulse Rate [ 75 84 Apical] Pulse Rate [ 84 Left side Sitting] Pulse Rate [ 95 H Left side Supine] Pulse Rate [ 96 H Standing] Respiratory 18 Rate Respiratory Normal Depth Respiratory Non-Labored Effort Blood Pressure 146/108 H [Left side Sitting] Blood Pressure 148/95 [Left side Supine] Blood Pressure 148/96 140/90 [Right Arm] Blood Pressure 137/110 H [Standing] O2 Sat by Pulse 99 96 98 Oximetry (%) Oxygen Delivery Room Air Method Laboratory Tests 02/25/20 02/26/20 11:43 06:50 WBC 8.2 10.2 H Laboratory Tests 02/25/20 02/26/20 02/26/20 20:40 02:00 02:00 Lyme Screen IgG & IgM Lyme IgM 23 kDa Band Lyme IgM 39 kDa Band Lyme IgM 41 kDa Band COVID-19 (PATRIZIA) Pending EBV DNA (PCR) Pending HSV I DNA Quant (PCR) Pending HSV II DNA Quant (PCR) Pending 02/26/20 06:50 Lyme Screen IgG & IgM Pending Lyme IgM 23 kDa Band Pending Lyme IgM 39 kDa Band Pending Lyme IgM 41 kDa Band Pending COVID-19 (PATRIZIA) EBV DNA (PCR) HSV I DNA Quant (PCR) HSV II DNA Quant (PCR) CT scan head/MRI (-) Case reviewed with medical team who feel tongue swelling/rash related to allergic reaction to strawberries. Pt had peanut butter/jelly sandwich at 830 yesterday morning. Pt has been NPO. Discussed with nursing who reports (-) dysphagia screen yesterday. History Source: Patient Limitations to Obtaining History: No Limitations - Past Medical History Pulmonary: Yes: Bronchitis, Sleep Apnea. No: Asthma, Cancer, COPD, O2 Dependent, Pneumonia, Previously Intubated, Pulmonary Embolus, Pulmonary Fibrosis ...: No - Smoking History Smoking history: Never smoked Have you smoked in the past 12 months: No - Alcohol/Substance Use Hx Alcohol Use: No History - Admission Reason For Visit: SPEECH DISTURBANCE - Diagnostics CT Scan: Report Reviewed MRI: Report Reviewed - General Mental Status: Alert and Oriented, Awake and Alert, Able to Follow Commands Attention: Intact Ability to Follow Directions: Excellent Head/Neck Control: WFL - Hearing Hearing: Functional Speech Evaluation - Communication Primary Language: PERUVIAN Communication: Yes: Within Normal Limits - Speech Production Able to Make Needs Known: Yes: WNL Intelligibility: Yes: WNL - Speech Characteristics Voice Loudness: Normal Voice Pitch: Yes: Normal Voice Phonatory-based Quality: Yes: Normal Speech Pattern: Normal Speech Clarity: < 100% Nasal Resonance: Normal Articulation: Yes: Precise Rate of Speech: Intact - Language/Auditory Comprehension Follows: Yes: 1 Stage Simple Commands Observation: Able to respond to yes/no queries: Yes, Yes/No Confusion: No, Comprehends Conversational Speech: Yes - Language/Verbal Expression Able to Respond to Simple Queries: Yes: WNL Able to Communicate Wants and Needs: Yes: WNL Functional Communication Status: Yes: WNL - Memory/Perception FCI Memory: Yes: WNL Short Term Memory: Yes: WNL - Swallow Evaluation/Bedside Assessment Current Nutritional Intake: NPO Oral Secretions: Yes: WFL Dentition: Yes: Adequate, Missing Teeth Facial Symmetry at Rest: Facial Droop Left (slight) Facial Symmetry on Retraction: Facial Droop Left (significant, jail. left eye /eyebrow/lips;upper/lower face involvement) Jaw Position: Closed at Rest Against Resistance Opening: Normal Against Resistance Closing: Normal Pucker Lips: Droops Left Smile: Droops Left Lingual Movement: Symmetric Lingual Speed of Movement: Normal Lingual Movement Strgth Against Opposition: Normal Lingual Movement Characteristics: Normal Velopharyngeal Movement: Normal Laryngeal Elevation: WFL Laryngeal Movement: Able to Palpate Rate of Intake: WFL Bolus Size: WFL Labial Seal: WFL Chewing: WFL Oral Prep Time: WFL A-P Transit: WFL Pocketing: None Timing of Swallow: WFL Coughing/Throat Clear: No Change in Voice: No Recommendations - Speech Evaluation, Impression/Plan Impression: 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 Speech is intelligible. Swallowing intact. - Dysphagia Impressions/Plan Swallowing Skills: WFL Dysphagia Impressions: No Impairment *Silent aspiration: cannot be R/O at bedside Dysphagia Treatment Plan: OOB for meals, OOB for 1 h. after meals - Recommendations Diet Consistency: Regular Medication Administration: Whole with water Liquids: Thin Liquids
[2020-02-26] MEDS ORDERED: ASPIRIN COATED 81 MG TABLET.EC PO SCH (10:00)
[2020-02-26] MEDS ORDERED: PANTOPRAZOLE SODIUM 40 MG VIAL IVPUSH SCH (10:00)
[2020-02-26] MEDS ORDERED: predniSONE 20 MG TABLET (UD) PO SCH (11:00)
[2020-02-26] MEDS ORDERED: predniSONE 20 MG TABLET (UD) ONE (11:11)
[2020-02-26] MEDS ORDERED: PANTOPRAZOLE SODIUM 40 MG/100 ML BAG IVPB ONE (11:11)
[2020-02-26] MEDS ORDERED: ASPIRIN COATED 81 MG TABLET.EC ONE (11:11)
[2020-02-26 11:42] VITALS: BP 156/105; PULSE 101
[2020-02-26] MEDS ORDERED: CARVEDILOL 12.5 MG TABLET (FP) PO SCH (11:45)
--- NOTE | 2020-02-26 11:45 | PN ---
Teaching Attending Note Name of Resident: Parish Tavares ATTENDING PHYSICIAN STATEMENT I saw and evaluated the patient. I reviewed the resident's note and discussed the case with the resident. I agree with the resident's findings and plan as documented. SUBJECTIVE: Seen and examined at bedside. 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 She states that her symptoms of dysarthria yesterday occurred after having a peanut butter and jelly sandwich from a store after which she developed tongue swelling leading to dysarthria and a bilateral erythematous rash of the upper extremities. 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 MRI and other brain imaging yesterday were negative for acute stroke. Patient's tongue swelling has resolved and she no longer has dysarthria and is able to swallow. We called the restaurant she ate out but were unable to confirm whether the sandwich had strawberry in the jelly. OBJECTIVE Last Vital Signs Temp Pulse Resp BP Pulse Ox 98.0 F 101 H 18 156/105 H 98 02/26/20 08:30 02/26/20 11:38 02/26/20 11:38 02/26/20 11:38 02/26/20 11:38 PE: Per resident note Labs/Imaging: reviewed ASSESSMENT/PLAN 64-year-old female past medical history of hypertension and A. 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 In the ED patient had a syncopal event.
[2020-02-26] MEDS ORDERED: HYDROCHLOROTHIAZIDE 25 MG TABLET (FP) PO SCH (12:00)
[2020-02-26] MEDS: SODIUM CHLORIDE 1,000 ML IV SCH (12:38)
[2020-02-26] MEDS ORDERED: HYDROCHLOROTHIAZIDE 25 MG TABLET (FP) ONE (12:39)
--- NOTE | 2020-02-26 18:12 | DS ---
Physical Exam: SUBJECTIVE: Patient seen and examined. Pt. states that she had a mixed fruit jelly. Call placed by medical team to restaurant however they were unclear with what exactly Pt. had. Pt. endorses feeling much better now. Pt. states that she had Tripathi's Palsy 11 years ago and that her L. sided facial symptoms began then. Pt. states b/l upper extremity erythema has resolved OBJECTIVE: Vital Signs Period Temp Pulse Resp BP Sys/[place] Pulse Ox Last 24 Hr 98.0 F-98.4 F 75-101 18-18 136-156/90-110 96-99 PHYSICAL EXAM GENERAL: The patient is awake, alert, and fully oriented, in no acute distress. HEAD: Normal with no signs of trauma.L. sided facial droop and flattened nasolabial folds, decreseased L. forehead furrow EYES: Extraocular movements intact, sclera anicteric, conjunctiva clear. ENT: moist mucous membranes. NECK: Trachea midline, full range of motion, supple. LUNGS: Breath sounds equal, clear to auscultation bilaterally, no wheezes, no crackles, no accessory muscle use. HEART: Irregular rate and rhythm, S1, S2 without murmur ABDOMEN: Soft, nontender, nondistended, normoactive bowel sounds, no guarding, no rebound EXTREMITIES: 2+ pulses, warm, well-perfused, no edema. NEUROLOGICAL: Moves all extremities, No limb deficits appreciated. Normal speech, gait not observed. PSYCH: Normal mood, normal affect. SKIN: Warm, dry, normal turgor, no rashes or lesions noted. LABS Laboratory Results - last 24 hr 02/25/20 02/26/20 02/26/20 20:40 02:00 06:50 WBC 10.2 H RBC 4.42 Hgb 13.2 Hct 39.8 MCV 90.1 MCH 29.8 MCHC 33.0 RDW 13.9 Plt Count 280 MPV 7.6 Absolute Neuts (auto) 8.4 H Neutrophils % 82.4 Lymphocytes % 12.7 D Monocytes % 4.6 Eosinophils % 0.0 D Basophils % 0.3 Nucleated RBC % 0 Sodium Potassium Chloride Carbon Dioxide Anion Gap BUN Creatinine Est GFR (CKD-EPI)AfAm Est GFR (CKD-EPI)NonAf Random Glucose Hemoglobin A1c % Calcium Phosphorus Magnesium Total Bilirubin AST ALT Alkaline Phosphatase Total Protein Albumin Triglycerides Cholesterol Total LDL Cholesterol HDL Cholesterol TSH Free T4 Urine Color Yellow Urine Appearance Clear Urine pH 5.0 D Ur Specific [place] 1.045 H Urine Protein 30 Urine Glucose (UA) Negative Urine Ketones Negative Urine Blood N Urine Nitrite Negative Urine Bilirubin Negative Urine Urobilinogen 1.0 Ur Leukocyte Esterase N Urine WBC (Auto) 2 Urine RBC (Auto) 3 U Epithel Cells (Auto) 1 COVID-19 (PATRIZIA) Not detected 02/26/20 02/26/20 06:50 06:50 WBC RBC Hgb Hct MCV MCH MCHC RDW Plt Count MPV Absolute Neuts (auto) Neutrophils % Lymphocytes % Monocytes % Eosinophils % Basophils % Nucleated RBC % Sodium 142 Potassium 3.8 Chloride 107 Carbon Dioxide 30 Anion Gap 5 L BUN 17.2 Creatinine 0.9 Est GFR (CKD-EPI)AfAm 78.32 Est GFR (CKD-EPI)NonAf 67.57 Random Glucose 104 Hemoglobin A1c % 5.0 Calcium 8.7 Phosphorus 5.1 H Magnesium 2.2 Total Bilirubin 0.6 AST 11 L ALT 23 Alkaline Phosphatase 89 Total Protein 5.9 L Albumin 2.8 L Triglycerides 62 Cholesterol 155 Total LDL Cholesterol 83 HDL Cholesterol 63 H TSH 0.15 L Free T4 1.19 Urine Color Urine Appearance Urine pH Ur Specific [place] Urine Protein Urine Glucose (UA) Urine Ketones Urine Blood Urine Nitrite Urine Bilirubin Urine Urobilinogen Ur Leukocyte Esterase Urine WBC (Auto) Urine RBC (Auto) U Epithel Cells (Auto) COVID-19 (PATRIZIA) HOSPITAL COURSE: Date of Admission:02/26/20 Date of Discharge: 02/26/20 64-year-old female past medical history of hypertension and A. 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 In the ED patient had a syncopal event. Orthostatics were negative. Pt. was given Epinepherine, IV fluids, Acid water filterer helper, Benadryl and Prednisone and saw that your symptoms improved. Head CTA, Brain MRI, and Carotid Doppler were negative for acute pathology.Pt. discharged home with strict instruction to avoid foods with unknown contents, especially mixed fruits. Pt. was seen by a Neurologist and observed uneventfully on telemetry. Hospital course discussed and agreed upon with Pt. Follow up was as detailed below. Minutes to complete discharge: 35 Discharge Summary Problems reviewed: Yes Reason For Visit: SPEECH DISTURBANCE Condition: Improved - Instructions Diet, Activity, Other Instructions: You came in with itching, rash on arms, swollen tongue and increased facial droop. We were concerned for stroke. We imaged your Head with a CT and MRI and did not find anything immediately concerning. we imaged the blood flow in your neck and brain and did not see anything immediately concerning. You were seen be a Neurologist in the hospital. We believe that you had a reaction to the Peanut butter and Mixed Jelly sandwich that you had as you are allergic to strawberries. Please be extra careful to avoid mixed fruit foods as many can contain strawberry products. We gave you Epinepherine, IV fluids, Acid water filterer helper, Benadryl and Prednisone and saw that your symptoms improved. We observed you on telemetry and did not see anything concerning. Please follow up with your Neurologist within 1 week. Please follow up with your PCP within 1 week. Please continue taking your medications as prescribed. Please return to the ED if you are having worsening weakness, shortness of breath, chest pain, changes in vision, or any concerning symptoms. Referrals: Radha Sherman MD [Staff Physician] - 1 Week Disposition: HOME - Home Medications Comprehensive Discharge Medication List: Ambulatory Orders Rivaroxaban [Xarelto] 20 mg PO DAILY 12/16/19 Carvedilol [Coreg -] 12.5 mg PO BID #60 tablet 12/17/19 Hydrochlorothiazide [Hctz -] 25 mg PO DAILY #30 tablet 12/17/19 Hydroxyzine HCl 25 mg PO DAILY 02/25/20 This patient is new to me today: Yes Date on this admission: 02/28/20 Emergency Visit: Yes ED Registration Date: 02/26/20 Care time: The patient presented to the Emergency Department on the above date and was hospitalized for further evaluation of their emergent condition. Critical Care patient: No - Discharge Referral Referred to [facility] No ATTENDING PHYSICIAN STATEMENT I saw and evaluated the patient. I reviewed the resident's note and discussed the case with the resident. I agree with the resident's findings and plan as documented. SUBJECTIVE: OBJECTIVE: ASSESSMENT AND PLAN:
[2020-02-26] MEDS ORDERED: ATORVASTATIN CA 40 MG TABLET (FP) PO SCH (22:00)
== END 2020-02-26 14:39 | disposition home or self-care (01) ==
LOC: JER 11:11 → UNDOADMOB 13:09 → JERBED 13:09 → INTOOBSV 13:09 → JERBED 02-26 09:47
PROVIDERS: ATTEND Internal Medicine
PROC: 3E033GC Introduction of Other Therapeutic Substance into Peripheral Vein, Percutaneous Approach (ICD-10-PCS; principal; 2020-02-26)
DX: I63.419 Cerebral infarction due to embolism of unspecified middle cerebral artery (principal); G51.4 Facial myokymia; R47.9 Unspecified speech disturbances; I48.91 Unspecified atrial fibrillation; I10 Essential (primary) hypertension; G51.0 Bell's palsy; J40 Bronchitis, not specified as acute or chronic; G47.33 Obstructive sleep apnea (adult) (pediatric); Z91.018 Allergy to other foods
CPT/HCPCS: 36415; 70450-TC; 70496-TC; 70551-TC; 71045-TC-FY; 80053; 80061; 81003; 82550; 82962; 83036; 83721; 83735; 84100; 84439; 84443; 84484; 85025; 85610; 85730; 86618; 86850; 86900; 86901; 87529; 87799; 93880-TC; 99285-25; C9803; G0378; Q9967; U0003

== ENCOUNTER → 2021-06-29 | Day surgery (SDC) | payer BC, OTHER | END | disposition home or self-care (01) | LOC: JRADIR 09:25 | PROVIDERS: ATTEND Internal Medicine | PROC: 0G9G3ZX Drainage of Left Thyroid Gland Lobe, Percutaneous Approach, Diagnostic (ICD-10-PCS; principal; 2021-06-29) | DX: E04.1 Nontoxic single thyroid nodule (principal) | CPT/HCPCS: 10005; 76942; 88173; 88305-TC ==

== ENCOUNTER 2021-09-16 14:26 | Observation (INO) | payer OTHER ==
[2021-09-16] MEDS ORDERED: ACETAMINOPHEN 325 MG TABLET (FP) PO PRN (15:49)
[2021-09-16 16:52] LABS: BASO % 0.5 % (0-2.0); EOS % 1.7 % (0-4.5); HEMATOCRIT 42.9 % (32.4-45.2); HEMOGLOBIN 14.2 GM/dL (10.7-15.3); LYMPH % 15.8 % (8-40); MCH 29.4 pg (25.7-33.7); MCHC 33.1 g/dl (32.0-36.0); MEAN CELL VOLUME 89.1 fl (80-96); MEAN PLT VOLUME 7.8 fl (7.5-11.1); MONO % 5.2 % (3.8-10.2); NEUT % 76.8 % (42.8-82.8); PLATELET COUNT 257 10^3/uL (134-434); RBC 4.82 M/mm3 (3.60-5.2); RDW 15.6 % (11.6-15.6); WHITE BLOOD COUNT 7.6 K/mm3 (4.0-10.0)
[2021-09-16 16:59] LABS: INR 2.26 (0.83-1.09); PROTHROMBIN TIME (PATIENT) 26.2 SEC (9.7-13.0)
[2021-09-16 17:02] LABS: ACTIVATED PTT 51.2 SECONDS (25.2-36.5)
[2021-09-16 17:16] LABS: CALCIUM 8.8 mg/dL (8.5-10.1)
[2021-09-16 17:17] LABS: ALBUMIN 3.5 g/dl (3.4-5.0); BLOOD UREA NITROGEN 20.9 mg/dL (7-18); MAGNESIUM 2.5 mg/dL (1.8-2.4)
[2021-09-16 17:20] LABS: CREATININE 0.9 mg/dL (0.55-1.3); PHOSPHOROUS 3.1 mg/dL (2.5-4.9)
[2021-09-16] MEDS ORDERED: SODIUM CHLORIDE 0.9% 500 ML INFUS.BAG IV ONE (17:33)
[2021-09-16] MEDS: SODIUM CHLORIDE 1,000 ML IV SCH (17:37)
[2021-09-16 18:48] VITALS: BMI 33.7
[2021-09-16] MEDS ORDERED: RIVAROXABAN 20 MG TABLET PO SCH (19:00)
[2021-09-16] MEDS: CARVEDILOL 12.5 MG TABLET (FP) PO SCH (22:01)
[2021-09-17] MEDS: SODIUM CHLORIDE 1,000 ML IV SCH ×2 (06:30→16:55)
[2021-09-17] MEDS ORDERED: RIVAROXABAN 20 MG TABLET PO SCH ×2 (10:00→18:00)
[2021-09-17] MEDS: CARVEDILOL 12.5 MG TABLET (FP) PO SCH (11:12)
[2021-09-17] MEDS ORDERED: SODIUM CHLORIDE 1,000 ML IV SCH (18:09)
[2021-09-18 07:15] VITALS: BP 139/96; PULSE 72; TEMP 98.3
[2021-09-18] MEDS: CARVEDILOL 12.5 MG TABLET (FP) PO SCH (10:00)
[2021-09-18] MEDS ORDERED: RIVAROXABAN 20 MG TABLET PO SCH (18:00)
== END 2021-09-18 14:21 | disposition home or self-care (01) ==
LOC: JER 14:26 → JERBED 15:31 → J4S 18:25
PROVIDERS: ADMIT Internal Medicine; ATTEND Internal Medicine
PROC: 3E0337Z Introduction of Electrolytic and Water Balance Substance into Peripheral Vein, Percutaneous Approach (ICD-10-PCS; principal; 2021-09-16)
DX: U07.1 COVID-19 (principal); G51.0 Bell's palsy; B97.29 Other coronavirus as the cause of diseases classified elsewhere; I10 Essential (primary) hypertension; I48.91 Unspecified atrial fibrillation; E66.8 Other obesity; Z68.33 Body mass index [BMI] 33.0-33.9, adult; R55 Syncope and collapse; R53.1 Weakness; J40 Bronchitis, not specified as acute or chronic; Z98.84 Bariatric surgery status; I69.354 Hemiplegia and hemiparesis following cerebral infarction affecting left non-dominant side; Z90.49 Acquired absence of other specified parts of digestive tract; G47.30 Sleep apnea, unspecified; Z91.018 Allergy to other foods; Z79.01 Long term (current) use of anticoagulants
CPT/HCPCS: 36415; 71045-TC-FY; 80053; 83735; 84100; 84484; 85025; 85610; 85730; 87804; 93005; 93010; 99285-25; C9803-CS; G0378; U0003; U0005

== ENCOUNTER 2022-12-08 13:29 | Emergency (ER) | payer OTHER ==
[2022-12-08 13:55] VITALS: TEMP 98; BMI 34.7
[2022-12-08 15:27] LABS: URINE APPEARANCE CLEAR; URINE BILIRUBIN NEGATIVE (NEGATIVE); URINE COLOR YELLOW; URINE GLUCOSE (UA) NEGATIVE (NEGATIVE); URINE KETONE NEGATIVE (NEGATIVE); URINE LEUK ESTERASE NEGATIVE (NEGATIVE); URINE NITRITE NEGATIVE (NEGATIVE); URINE PROTEIN NEGATIVE (NEGATIVE)
[2022-12-08 15:30] LABS: BASO % 0.2 % (0-2.0); EOS % 0.2 % (0-4.5); HEMATOCRIT 41.3 % (32.4-45.2); HEMOGLOBIN 13.8 GM/dL (10.7-15.3); LYMPH % 4.1 % (8-40); MCH 29.2 pg (25.7-33.7); MCHC 33.4 g/dl (32.0-36.0); MEAN CELL VOLUME 87.6 fl (80-96); MEAN PLT VOLUME 7.5 fl (7.5-11.1); MONO % 4.7 % (3.8-10.2); NEUT % 90.8 % (42.8-82.8); PLATELET COUNT 249 10^3/uL (134-434); RBC 4.71 M/mm3 (3.60-5.2); RDW 14.5 % (11.6-15.6); WHITE BLOOD COUNT 13.4 K/mm3 (4.0-10.0)
[2022-12-08 15:46] LABS: ALBUMIN 3.5 g/dl (3.4-5.0); CALCIUM 9.2 mg/dL (8.5-10.1)
[2022-12-08 15:47] LABS: BLOOD UREA NITROGEN 17.8 mg/dL (7-18)
[2022-12-08 15:50] LABS: CREATININE 0.9 mg/dL (0.55-1.3)
[2022-12-08 15:51] LABS: BILIRUBIN,TOTAL 0.8 mg/dL (0.2-1); TOT PROT 7.2 g/dl (6.4-8.2)
[2022-12-08 15:52] LABS: N-TERMINAL BNP 516.6 pg/ml (5-125)
[2022-12-08 20:27] VITALS: BP 123/82; PULSE 61; RESP 17
== END 2022-12-08 20:15 | disposition home or self-care (01) ==
LOC: JER 13:29
DX: G62.9 Polyneuropathy, unspecified (principal)
CPT/HCPCS: 0241U-QW; 36415; 70450-TC; 70551-TC; 71045-TC-FY; 80053; 80061; 81003; 82550; 83036; 83880; 84484; 85025; 86850; 86900; 86901; 87086; 93005; 93010; 99285-25

== ENCOUNTER 2023-07-07 16:40 | Emergency (ER) | payer OTHER ==
[2023-07-07 16:45] VITALS: RESP 18; BMI 37.1
[2023-07-07 18:35] LABS: URINE APPEARANCE CLEAR; URINE BILIRUBIN NEGATIVE (NEGATIVE); URINE COLOR YELLOW; URINE GLUCOSE (UA) NEGATIVE (NEGATIVE); URINE KETONE NEGATIVE (NEGATIVE); URINE LEUK ESTERASE NEGATIVE (NEGATIVE); URINE NITRITE NEGATIVE (NEGATIVE); URINE PROTEIN NEGATIVE (NEGATIVE)
[2023-07-07 18:41] LABS: BASO % 0.9 % (0-2.0); EOS % 2.1 % (0-4.5); HEMATOCRIT 39.3 % (32.4-45.2); LYMPH % 31.1 % (8-40); MCH 29.8 pg (25.7-33.7); MCHC 33.1 g/dl (32.0-36.0); MEAN PLT VOLUME 7.1 fl (7.5-11.1); MONO % 6.9 % (3.8-10.2); PLATELET COUNT 285 10^3/uL (134-434); RBC 4.37 M/mm3 (3.60-5.2); RDW 14.8 % (11.6-15.6); WHITE BLOOD COUNT 7.1 K/mm3 (4.0-10.0)
[2023-07-07 18:45] LABS: INR 1.91 (0.83-1.09)
[2023-07-07 18:48] LABS: ACTIVATED PTT 50.9 SECONDS (25.2-36.5)
[2023-07-07 18:54] LABS: POTASSIUM 4.3 mmol/L (3.5-5.1)
[2023-07-07 18:55] LABS: ALBUMIN 3.5 g/dl (3.4-5.0); CALCIUM 8.5 mg/dL (8.5-10.1)
[2023-07-07 18:57] LABS: BLOOD UREA NITROGEN 18.8 mg/dL (7-18)
[2023-07-07 18:59] LABS: CREATININE 0.9 mg/dL (0.55-1.3)
[2023-07-07 19:01] LABS: BILIRUBIN,TOTAL 0.5 mg/dL (0.2-1); TOT PROT 7.1 g/dl (6.4-8.2)
[2023-07-07 19:21] VITALS: TEMP 98.3
[2023-07-07 21:14] VITALS: BP 157/92; PULSE 79
== END 2023-07-07 21:14 | disposition home or self-care (01) ==
LOC: JER 16:40
DX: R10.84 Generalized abdominal pain (principal)
CPT/HCPCS: 36415; 71046-TC-FY; 74177-TC; 80053; 81003; 83605; 83690; 85025; 85610; 85730; 87086; 93005; 93010; 99285-25

== ENCOUNTER 2023-11-20 18:37 | Observation (INO) | payer OTHER ==
[2023-11-20 18:44] VITALS: BMI 34.7
[2023-11-20 20:23] LABS: EOS % 1.5 % (0-4.5); HEMATOCRIT 40.6 % (32.4-45.2); HEMOGLOBIN 13.8 GM/dL (10.7-15.3); LYMPH % 38.3 % (8-40); MCH 29.7 pg (25.7-33.7); MEAN CELL VOLUME 87.4 fl (80-96); MEAN PLT VOLUME 7.3 fl (7.5-11.1); MONO % 9.4 % (3.8-10.2); NEUT % 49.8 % (42.8-82.8); PLATELET COUNT 239 10^3/uL (134-434); RBC 4.65 M/mm3 (3.60-5.2); RDW 15.3 % (11.6-15.6); WHITE BLOOD COUNT 7.1 K/mm3 (4.0-10.0)
[2023-11-20] MEDS: SODIUM CHLORIDE 1,000 ML IV STA (20:30)
[2023-11-20 20:42] LABS: POTASSIUM 3.9 mmol/L (3.5-5.1)
[2023-11-20 20:44] LABS: ALBUMIN 3.5 g/dl (3.4-5.0); BLOOD UREA NITROGEN 44.6 mg/dL (7-18); MAGNESIUM 2.6 mg/dL (1.8-2.4)
[2023-11-20 20:48] LABS: TOT PROT 6.9 g/dl (6.4-8.2)
[2023-11-20 20:49] LABS: BILIRUBIN,TOTAL 0.9 mg/dL (0.2-1)
[2023-11-20 20:51] LABS: CREATININE 2.5 mg/dL (0.55-1.3)
[2023-11-20 21:47] LABS: URINE APPEARANCE CLEAR; URINE BILIRUBIN NEGATIVE (NEGATIVE); URINE COLOR YELLOW; URINE GLUCOSE (UA) NEGATIVE (NEGATIVE); URINE KETONE TRACE (NEGATIVE); URINE LEUK ESTERASE NEGATIVE (NEGATIVE); URINE NITRITE NEGATIVE (NEGATIVE); URINE PROTEIN NEGATIVE (NEGATIVE); URINE UROBILINOGEN 0.2 mg/dL (0.2-1.0)
[2023-11-20] MEDS: REMDESIVIR 200 MG in SODIUM CHLORIDE 250 ML IVPB ONE (23:40)
[2023-11-20] MEDS: SODIUM CHLORIDE 1,000 ML IV SCH (23:57)
[2023-11-21] MEDS: REMDESIVIR 200 MG in SODIUM CHLORIDE 250 ML IVPB ONE (02:51)
[2023-11-21 06:36] LABS: BASO % 0.8 % (0-2.0); EOS % 1.8 % (0-4.5); HEMOGLOBIN 14.3 GM/dL (10.7-15.3); MCH 29.5 pg (25.7-33.7); MCHC 33.2 g/dl (32.0-36.0); MEAN CELL VOLUME 88.6 fl (80-96); MEAN PLT VOLUME 7.5 fl (7.5-11.1); MONO % 7.8 % (3.8-10.2); NEUT % 45.6 % (42.8-82.8); PLATELET COUNT 239 10^3/uL (134-434); RBC 4.85 M/mm3 (3.60-5.2); RDW 15.3 % (11.6-15.6); WHITE BLOOD COUNT 6.5 K/mm3 (4.0-10.0)
[2023-11-21 06:50] LABS: POTASSIUM 3.2 mmol/L (3.5-5.1)
[2023-11-21 06:52] LABS: CALCIUM 9.1 mg/dL (8.5-10.1)
[2023-11-21 06:53] LABS: ALBUMIN 3.6 g/dl (3.4-5.0); MAGNESIUM 2.4 mg/dL (1.8-2.4)
[2023-11-21 06:56] LABS: CREATININE 1.8 mg/dL (0.55-1.3); PHOSPHOROUS 3.7 mg/dL (2.5-4.9)
[2023-11-21 06:58] LABS: TOT PROT 7.1 g/dl (6.4-8.2)
[2023-11-21 06:59] LABS: BILIRUBIN,TOTAL 0.8 mg/dL (0.2-1)
[2023-11-21] MEDS ORDERED: POTASSIUM CHLORIDE ORAL LIQUID 20 MEQ/15 ML ONE ×2 (07:59→15:04)
[2023-11-21] MEDS: POTASSIUM CHLORIDE ORAL LIQUID 20 MEQ/15 ML PO SCH (08:05)
[2023-11-21] MEDS ORDERED: CARVEDILOL 25 MG TABLET (FP) ONE (10:04)
[2023-11-21] MEDS: CARVEDILOL 25 MG TABLET (FP) PO SCH (10:34)
[2023-11-21] MEDS: RIVAROXABAN 15 MG TABLET PO SCH (17:20)
[2023-11-22 01:21] VITALS: RESP 18
[2023-11-22 09:25] LABS: BASO % 0.9 % (0-2.0); EOS % 1.7 % (0-4.5); HEMATOCRIT 45.2 % (32.4-45.2); LYMPH % 33.2 % (8-40); MCH 29.4 pg (25.7-33.7); MCHC 33.3 g/dl (32.0-36.0); MEAN CELL VOLUME 88.3 fl (80-96); MEAN PLT VOLUME 7.8 fl (7.5-11.1); MONO % 7.8 % (3.8-10.2); NEUT % 56.4 % (42.8-82.8); PLATELET COUNT 209 10^3/uL (134-434); RBC 5.12 M/mm3 (3.60-5.2); RDW 15.7 % (11.6-15.6); WHITE BLOOD COUNT 6.2 K/mm3 (4.0-10.0)
[2023-11-22 09:42] LABS: POTASSIUM 4.8 mmol/L (3.5-5.1)
[2023-11-22 09:43] LABS: CALCIUM 9.2 mg/dL (8.5-10.1)
[2023-11-22 09:45] LABS: BLOOD UREA NITROGEN 19.4 mg/dL (7-18); MAGNESIUM 2.1 mg/dL (1.8-2.4)
[2023-11-22 09:47] LABS: CREATININE 1.1 mg/dL (0.55-1.3); PHOSPHOROUS 3.3 mg/dL (2.5-4.9)
[2023-11-22] MEDS: REMDESIVIR 100 MG in SODIUM CHLORIDE 250 ML IVPB SCH (10:34)
[2023-11-23 09:27] LABS: BASO % 0.7 % (0-2.0); EOS % 1.6 % (0-4.5); HEMATOCRIT 41.8 % (32.4-45.2); LYMPH % 32.6 % (8-40); MCH 29.6 pg (25.7-33.7); MCHC 33.6 g/dl (32.0-36.0); MONO % 7.7 % (3.8-10.2); NEUT % 57.4 % (42.8-82.8); PLATELET COUNT 245 10^3/uL (134-434); RBC 4.74 M/mm3 (3.60-5.2); RDW 15.4 % (11.6-15.6); WHITE BLOOD COUNT 6.3 K/mm3 (4.0-10.0)
[2023-11-23 09:47] LABS: POTASSIUM 4.4 mmol/L (3.5-5.1)
[2023-11-23 10:11] LABS: BLOOD UREA NITROGEN 20.3 mg/dL (7-18); CALCIUM 8.6 mg/dL (8.5-10.1)
[2023-11-23] MEDS: SODIUM CHLORIDE 0.9% 500 ML INFUS.BAG IV ONE (15:59)
[2023-11-23] MEDS: CARVEDILOL 25 MG TABLET (FP) PO SCH (21:34)
[2023-11-24 08:33] LABS: HEMATOCRIT 44.1 % (32.4-45.2); MCH 29.6 pg (25.7-33.7); MCHC 33.9 g/dl (32.0-36.0); MEAN CELL VOLUME 87.3 fl (80-96); MEAN PLT VOLUME 8.1 fl (7.5-11.1); PLATELET COUNT 284 10^3/uL (134-434); RBC 5.06 M/mm3 (3.60-5.2); RDW 15.6 % (11.6-15.6); WHITE BLOOD COUNT 7.6 K/mm3 (4.0-10.0)
[2023-11-24 08:36] LABS: POTASSIUM 4.5 mmol/L (3.5-5.1)
[2023-11-24 08:45] LABS: BLOOD UREA NITROGEN 20.1 mg/dL (7-18)
[2023-11-24 08:48] LABS: CREATININE 1.1 mg/dL (0.55-1.3)
[2023-11-24] MEDS: CARVEDILOL 12.5 MG TABLET (FP) PO SCH (09:54)
[2023-11-24] MEDS: ACETAMINOPHEN 325 MG TABLET (FP) PO PRN (14:21)
[2023-11-25 09:10] VITALS: BP 108/84; PULSE 84; TEMP 98.8
== END 2023-11-25 12:56 | disposition home health service (06) ==
LOC: JER 18:37 → INTOOBSV 21:19 → JERBED 21:19 → UNDOADMOB 21:19 → JERBED 23:30 → J4S 11-22 00:22
PROVIDERS: ADMIT Internal Medicine; ATTEND Nurse Practitioner
PROC: 3E033GC Introduction of Other Therapeutic Substance into Peripheral Vein, Percutaneous Approach (ICD-10-PCS; principal; 2023-11-20)
PROC: 3E0337Z Introduction of Electrolytic and Water Balance Substance into Peripheral Vein, Percutaneous Approach (ICD-10-PCS; 2023-11-20)
DX: U07.1 COVID-19 (principal); I48.91 Unspecified atrial fibrillation; Z79.01 Long term (current) use of anticoagulants; G51.0 Bell's palsy; N17.9 Acute kidney failure, unspecified; Z98.84 Bariatric surgery status; R35.0 Frequency of micturition; Z90.49 Acquired absence of other specified parts of digestive tract; R94.4 Abnormal results of kidney function studies; Z91.018 Allergy to other foods
CPT/HCPCS: 0241U-QW; 36415; 71045-TC-FY; 76775-TC; 80048; 80053; 81003; 82436; 82570; 83735; 83935; 84100; 84133; 84300; 84484; 84540; 85025; 85027; 87086; 93005; 93010; 97116-GP; 97161-GP; 99285-25; G0378; J0248

== ENCOUNTER 2023-12-05 05:20 | Day surgery (SDC) | payer OTHER ==
[2023-11-29 14:53] VITALS: BMI 37.1
[2023-12-05 12:05] VITALS: TEMP 99.1
[2023-12-05 13:26] VITALS: BP 174/116; PULSE 76; RESP 20
== END 2023-12-05 13:18 | disposition home or self-care (01) ==
LOC: JASU-ENDO 05:20
PROVIDERS: ATTEND Internal Medicine Gastroenterology
PROC: 0DBL8ZX Excision of Transverse Colon, Via Natural or Artificial Opening Endoscopic, Diagnostic (ICD-10-PCS; 2023-12-05)
PROC: 0DBM8ZX Excision of Descending Colon, Via Natural or Artificial Opening Endoscopic, Diagnostic (ICD-10-PCS; 2023-12-05)
PROC: 0DBK8ZX Excision of Ascending Colon, Via Natural or Artificial Opening Endoscopic, Diagnostic (ICD-10-PCS; principal; 2023-12-05 10:30)
DX: Z12.11 Encounter for screening for malignant neoplasm of colon (principal); D12.2 Benign neoplasm of ascending colon; D12.3 Benign neoplasm of transverse colon; K63.5 Polyp of colon; K64.8 Other hemorrhoids; I10 Essential (primary) hypertension; R19.5 Other fecal abnormalities
CPT/HCPCS: 88305-TC

== ENCOUNTER 2023-12-05 13:15 | Emergency (ER) | payer OTHER ==
[2023-12-05 13:23] VITALS: TEMP 97.6; BMI 33.9
[2023-12-05 15:45] LABS: BASO % 0.5 % (0-2.0); EOS % 1.6 % (0-4.5); HEMATOCRIT 43.1 % (32.4-45.2); HEMOGLOBIN 14.7 GM/dL (10.7-15.3); LYMPH % 22.4 % (8-40); MCH 29.8 pg (25.7-33.7); MEAN CELL VOLUME 87.7 fl (80-96); MEAN PLT VOLUME 7.1 fl (7.5-11.1); MONO % 6.7 % (3.8-10.2); NEUT % 68.8 % (42.8-82.8); PLATELET COUNT 232 10^3/uL (134-434); RBC 4.91 M/mm3 (3.60-5.2); RDW 15.7 % (11.6-15.6); WHITE BLOOD COUNT 7.4 K/mm3 (4.0-10.0)
[2023-12-05 16:59] LABS: ALBUMIN 3.6 g/dl (3.4-5.0); CALCIUM 9.5 mg/dL (8.5-10.1)
[2023-12-05 17:00] LABS: BLOOD UREA NITROGEN 10.2 mg/dL (7-18)
[2023-12-05 17:02] LABS: CREATININE 0.7 mg/dL (0.55-1.3)
[2023-12-05 17:04] LABS: BILIRUBIN,TOTAL 0.9 mg/dL (0.2-1); TOT PROT 7.4 g/dl (6.4-8.2)
[2023-12-05] MEDS ORDERED: ACETAMINOPHEN 325 MG TABLET (FP) ONE (19:08)
[2023-12-05] MEDS: ACETAMINOPHEN 500 MG TABLET (FP) PO ONE (19:11)
[2023-12-05 19:36] VITALS: BP 156/110; PULSE 70; RESP 18
== END 2023-12-05 19:52 | disposition home or self-care (01) ==
LOC: JER 13:15
DX: I10 Essential (primary) hypertension (principal)
CPT/HCPCS: 36415; 80053; 84484; 85025; 93005; 93010; 99284-25